=== PATIENT | female | born 1940 | race Caucasian/White ===

== ENCOUNTER 2017-10-25 09:42 | Inpatient (IN) | payer OTHER, MEDICARE ==
[2017-10-10 10:33] VITALS: BMI 33.0
--- NOTE | 2017-10-10 11:17 | PAT Medication Instructions ---
Service Date Oct 10, 2017. Current Home Medication List Alprazolam (Xanax), 1 MG PO HS PRN Aspirin (Aspirin Ec), 81 MG PO QAM Benzonatate (Tessalon Perles), 100 MG PO PRN Gabapentin (Neurontin), 600 MG PO QID Latanoprost (Xalatan 0.005% Oph Salome), 1 DROPS OP HS Levothyroxine Sodium (Levothyroxine Sodium), 100 MCG PO QAM Lorazepam (Ativan), 0.5 MG PO Q6H PRN for prn Losartan Potassium (Cozaar), 50 MG PO QAM Meloxicam (Mobic), 15 MG PO QAM Multivitamin (Multivitamin), 1 TAB PO QAM Sertraline (Zoloft), 150 MG PO QAM Simvastatin (Zocor), 20 MG PO QPM Medication Instructions For Your Scheduled Surgery - Hold the following medications per your surgeon's instructions: Meloxicam (Mobic), 15 MG PO QAM - Hold the following medications the morning of surgery: Benzonatate (Tessalon Perles), 100 MG PO PRN Losartan Potassium (Cozaar), 50 MG PO QAM Multivitamin (Multivitamin), 1 TAB PO QAM - Take the following medications the morning of surgery with a sip of water: Alprazolam (Xanax), 1 MG PO HS PRN (if needed) Aspirin (Aspirin Ec), 81 MG PO QAM Levothyroxine Sodium (Levothyroxine Sodium), 100 MCG PO QAM Gabapentin (Neurontin), 600 MG PO QID Lorazepam (Ativan), 0.5 MG PO Q6H PRN for prn (if needed) Sertraline (Zoloft), 150 MG PO QAM - Take the following medications as scheduled the night before surgery: Alprazolam (Xanax), 1 MG PO HS PRN (if needed) Gabapentin (Neurontin), 600 MG PO QID Latanoprost (Xalatan 0.005% Oph Salome), 1 DROPS OP HS Lorazepam (Ativan), 0.5 MG PO Q6H PRN for prn (if needed) Simvastatin (Zocor), 20 MG PO QPM If you have any questions please call us at [phone] or [phone] or [phone]
[2017-10-10 13:39] LABS: BASO % 0.5 %; BASO ABS # 0.05 K/uL (0-0.2); EOS % 2.5 %; EOS ABS # 0.23 K/uL (0-0.5); HEMATOCRIT 43.7 % (37-47); HEMOGLOBIN 14.7 g/dL (12.0-16.0); IG# 0.02 K/uL (0.00-0.02); LYMPH % 22.9 %; LYMPH ABS # 2.14 K/uL (1.2-3.4); MEAN CELL VOLUME 96.3 fL (80-100); MEAN CORPUSCULAR HEMOGLOBIN 32.4 pg (25-34); MEAN CORPUSCULAR HGB CONC 33.6 g/dl (32-36); MEAN PLATELET VOLUME 10.9 fL (7.4-10.4); MONO % 7.8 %; MONO ABS # 0.73 K/uL (0.11-0.59); NEUT % 66.1 %; NEUT ABS # 6.19 K/uL (1.4-6.5); PLATELET COUNT 202 K/uL (130-400); RED CELL DISTRIBUTION WIDTH SD 49.9 fL (36.4-46.3); WHITE BLOOD COUNT 9.36 K/uL (4.8-10.8)
[2017-10-10 13:49] LABS: BLOOD UREA NITROGEN 27 mg/dl (7-18); CALCIUM 9.1 mg/dl (8.5-10.1); CARBON DIOXIDE 27 mmol/L (21-32); CREATININE 1.14 mg/dl (0.60-1.20); GLUCOSE 87 mg/dl (70-99); POTASSIUM 4.3 mmol/L (3.5-5.1); SODIUM 140 mmol/L (136-145)
--- NOTE | 2017-10-20 14:55 | HISTORY & PHYSICAL EXAMINATION ---
DATE OF ADMISSION: 10/25/2017 CHIEF COMPLAINT: Knee pain and discomfort, left side greater than the right. HISTORY OF PRESENT ILLNESS: The patient is a 77-year-old female who presents for surgical treatment of her left knee. She has a long history of bilateral knee pain and discomfort treated by Dr. De La Torre in [place]. She has had both steroid shots and Euflexxa. The shots helped some, but became less successful over time. Left knee has bothered her more than the right. She has pain when she walks and the more she walks, the more it hurts. It is mostly medial pain. Of note, patient has a history of some hip and back problems followed by Dr. Granger as well. PAST MEDICAL HISTORY: 1. Hypertension. 2. Elevated cholesterol. 3. Sleep apnea with a CPAP machine. 4. Anxiety. 5. Hypothyroidism. 6. Arthritis. 7. Gastroesophageal reflux disease. 8. Hiatal hernia. 9. Obesity with a BMI of 33.3. 10. Colon cancer, status post resection in 1992 without recurrence. PAST SURGICAL HISTORY: Include: 1. Tonsillectomy. 2. Back surgery. 3. Shoulder surgery. 4. Tubal ligation. 5. Bowel resection. ALLERGIES: PROTONIX. CURRENT MEDICINES: 1. Lorazepam 0.5 mg p.r.n. for anxiety. 2. Levothyroxine. 3. Alprazolam 0.5 mg at bedtime. 4. Sertraline 50 mg in the morning. 5. Gabapentin 600 mg 4 times a day. 6. Losartan 50 mg a day. 7. Baby aspirin. 8. Latanoprost eyedrops 1 drop in each eye at bedtime. 9. Multivitamin. SOCIAL HISTORY: Significant for a 77-year-old female patient from [place]. She is . FAMILY HISTORY: Noncontributory. REVIEW OF SYSTEMS: Negative for diabetes. Denies any chest pain, no shortness of breath. No history of DVT or PE. PHYSICAL EXAMINATION: GENERAL: Reveals a pleasant middle-aged female, but looks in pretty good health. HEENT: Benign. NECK: Supple. No lymphadenopathy. LUNGS: Clear to auscultation. HEART: Has a regular rate and rhythm. ABDOMEN: Soft, nontender, nondistended. EXTREMITIES: Grossly neurovascularly intact except as follows. Examination of both knees shows the patient walks independently. She has a slight varus alignment of both knees. She has got tenderness medially in both knees as well as some bony hypertrophy. Range of motion is pretty symmetric with about 5 degrees short of full extension to 120 degrees of flexion. There is no instability. X-RAYS: X-rays of both knees were reviewed. It shows advanced bilateral knee DJD. She has got complete loss of the medial joint space. The left side is a bit worse than the right. ASSESSMENT: A 77-year-old female with advanced bilateral knee pain and degenerative joint disease, unresponsive to conservative treatment. The left side is more symptomatic than the right and she would like to have her left knee replaced. PLAN: We will take her to the operating room and do a left knee replacement. The risks and benefits of this procedure were explained to the patient including but not limited to DVT, PE, , infection, neurological injury, vascular injury, bleeding problem, pain, limited range of motion, stiffness, failure to relieve symptoms, incomplete relief of symptoms, need for further surgery in the future, fracture, leg length inequality, nerve palsy, etc. The patient understands and desires to proceed. Informed consent was obtained. We did talk to her about bringing her CPAP machine to the hospital. BEN
[2017-10-25] VITALS (7 sets, daily range): BP systolic 126–160; BP diastolic 75–91; PULSE 58–68; TEMP 36.5–36.9; O2SAT 90–98; Ht 160 cm; Wt 85.3 kg
[~2017-10-25] VITALS: Ht 160 cm; Wt 85.3 kg
[~2017-10-25 09:42] MED LIST: ACETAMINOPHEN 500 MG TAB PO SCH; ALPR-411 PO; ASPI81TA28 PO; BENZ100C84 PO; BUPIVACAINE 0.25% 30 ML VIAL ONE; BUPIVACAINE 0.5 % 5 MG/1 ML PF 10ML VIAL ONE; BUPIVACAINE LIPOSOME 266 MG, BUPIVACAINE/EPINEPHRINE INJ 50 ML, SODIUM CHLORIDE 0.9% PF... INFIL SCH; CEFAZOLIN 2000MG IV PUSH 15 ML IV SCH; FAMOTIDINE 20 MG TAB PO SCH; GABAPENTIN 300 MG CAP PO SCH; LACTATED RINGER'S 1000ML 1,000 ML IV SCH; LACTATED RINGER'S 1000ML IV SCH; LATA0.009 OP; LEVO100T7 PO; LORA-741 PO; LOSA50TA6 PO; MELO7.5T5 PO; METOCLOPRAMIDE HCL 10 MG TAB PO SCH; MULT-506 PO; NRN/600 PO; SERT50TA PO; SIMV20TA2 PO; TRANEXAMIC ACID INJ 1,000 MG x 1 Bag Preop IV SCH
--- NOTE | 2017-10-25 11:22 | History & Physical Bridge Note ---
H&P Re-Evaluation Bridge Note: I have examined the patient, reviewed the History & Physical and in the interval since the performance of the History & Physical I have noted the following changes of clinical significance: No changes noted
[2017-10-25] MEDS ORDERED: MIDAZOLAM HCL 1 MG/ML 2ML VIAL ONE ×4 (11:28→12:52)
[2017-10-25] MEDS ORDERED: HYDROmorphone INJ 1 MG/ML SYR IV PRN (12:00)
[2017-10-25] MEDS ORDERED: FENTANYL CITRATE INJ 50 MCG/1 ML 2 ML VIAL IV PRN (12:00)
[2017-10-25] MEDS ORDERED: ONDANSETRON INJ 2 MG/ML 2 ML VIAL IV PRN ×2 (12:00→15:00)
[2017-10-25] MEDS ORDERED: MEPERIDINE HCL 25 MG/ML CARP IV PRN (12:00)
[2017-10-25] MEDS ORDERED: EpHEDrine SULFATE INJ 50 MG/ML AMP IV PRN (12:00)
[2017-10-25] MEDS ORDERED: ATROPINE SULFATE 0.1 MG/ML 5ML SYR IV PRN (12:00)
[2017-10-25] MEDS ORDERED: LABETALOL HCL IV 5 MG/ML 20ML IV PRN (12:00)
[2017-10-25] MEDS ORDERED: SODIUM CHLORIDE 0.9% PF 50 ML VIAL ONE (12:38)
[2017-10-25] MEDS ORDERED: BACITRACIN 50000 UNIT VIAL ONE (12:38)
[2017-10-25] MEDS ORDERED: BUPIVACAINE LIPOSOME 1/3% 266 MG/20 ML VIAL INFIL ONE (12:38)
[2017-10-25] MEDS ORDERED: BUPIVACAINE 0.25% 30 ML VIAL ONE ×2 (12:39→12:41)
[2017-10-25] MEDS ORDERED: EpINEphrine INJ 1MG/ML AMP 1 MG/ML AMP ONE (12:40)
[2017-10-25] MEDS ORDERED: PROPOFOL IV EMULSION 10 MG/ML 20 ML VIAL IV ONE ×2 (13:42→14:13)
[2017-10-25] MEDS ORDERED: LIDOCAINE HCL 2% 2 ML VIAL (20MG/ML) ONE (13:42)
[2017-10-25] MEDS ORDERED: EpHEDrine SULFATE 50MG/5ML SYR ONE (14:37)
--- NOTE | 2017-10-25 14:49 | [facility] Post Operative Brief Note ---
Immediate Operative Summary Operative Date Oct 25, 2017. Pre-Operative Diagnosis Left knee degenerative joint disease. Post-Operative Diagnosis Left knee degenerative joint disease. Procedure(s) Performed Left total knee arthroplasty. Surgeon Dr. Plascencia Fitter/Welder Surgeon(s) Poornima Vieyra, PAC Estimated Blood Loss 50 ml Findings Consistent with Post-Op Diagnosis Fluids (cc crystalloids) 1200 cc Specimens A: Left knee bone and tissue. Drains None Anesthesia Type MAC Spinal Regional Complication(s) none Disposition Accompanied Pt To Recover: no Disposition: Recovery Room / PACU
[2017-10-25] MEDS ORDERED: HYDROmorphone INJ 0.5 MG/0.5 ML SYR IV PRN (15:00)
[2017-10-25] MEDS ORDERED: LORAZEPAM 0.5 MG TAB PO PRN (15:00)
[2017-10-25] MEDS ORDERED: BENZONATATE 100MG CAP PO PRN (15:00)
[2017-10-25] MEDS ORDERED: CEFAZOLIN IV 2,000 MG in DEXTROSE 5% 50ML 50 ML IV SCH (15:00)
[2017-10-25] MEDS ORDERED: MAGNESIUM HYDROXIDE SUSP 30 ML UDC PO PRN (15:00)
[2017-10-25] MEDS ORDERED: ALPRAZOLAM 0.5 MG TAB PO PRN (15:00)
[2017-10-25] MEDS ORDERED: ALUMINUM/MAGNESIUM/SIMETH (MAALOX MAX) 30 ML UDC PO PRN (15:00)
[2017-10-25] MEDS ORDERED: ZOLPIDEM TARTRATE 5 MG TAB PO PRN (15:00)
[2017-10-25] MEDS ORDERED: METOCLOPRAMIDE HCL INJ 5 MG/ML 2 ML VIAL IV PRN (15:00)
[2017-10-25] MEDS ORDERED: BISACODYL 10 MG SUPP PR PRN (15:00)
--- NOTE | 2017-10-25 15:32 | Anesthesiology Progress Note ---
Anesthesia Post Op Note Date & Time Oct 25, 2017 at 15:32 Vital Signs Pain Intensity: 0 Vital Signs Past 12 Hours Date Time Temp Pulse Resp B/P (MAP) Pulse Ox O2 Delivery O2 Flow Rate FiO2 10/25/17 15:31 37.1 10/25/17 15:29 63 13 10/25/17 15:29 63 13 97 10/25/17 15:26 156/78 10/25/17 15:24 67 19 98 10/25/17 15:24 66 19 10/25/17 15:21 141/72 10/25/17 15:19 68 18 10/25/17 15:19 67 18 96 10/25/17 15:18 148/74 10/25/17 15:16 67 18 10/25/17 15:16 67 18 97 10/25/17 15:11 66 19 10/25/17 15:11 66 19 96 10/25/17 15:10 67 14 96 10/25/17 15:10 68 14 10/25/17 15:06 135/69 10/25/17 15:05 66 16 10/25/17 15:05 66 16 95 10/25/17 15:01 137/71 10/25/17 15:00 72 17 10/25/17 15:00 71 17 98 10/25/17 14:56 131/68 10/25/17 14:55 37.5 77 18 131/68 97 Nasal Cannula 4 10/25/17 10:11 36.7 68 16 156/88 93 Room Air Notes Mental Status: alert / awake / arousable, participated in evaluation Pt Amnestic to Procedure: Yes Nausea / Vomiting: adequately controlled Pain: adequately controlled Airway Patency, RR, SpO2: stable & adequate BP & HR: stable & adequate Hydration State: stable & adequate Anesthetic Complications: no major complications apparent
--- NOTE | 2017-10-25 15:34 | DIAGNOSTIC IMAGING REPORT ---
L KNEE 1 OR 2 VIEWS ROUTINE CLINICAL HISTORY: 77 years-old Female presenting with AP/LATERAL IN PACU LEFT KNEE. TECHNIQUE: Frontal and lateral views of the left knee were obtained. COMPARISON: 02/18/2017. FINDINGS: Postsurgical changes of total left knee arthroplasty with patellar resurfacing. Expected intra-articular and soft tissue emphysema. Overlying skin jose noted. No malalignment. No periprosthetic fracture. No hardware complication. IMPRESSION: Expected postsurgical changes status post total left knee arthroplasty with patellar resurfacing. Electronically signed by: Riki Malhotra M.D. 10/25/2017 3:33 PM Dictated Date/Time: 10/25/2017 3:32 PM
[2017-10-25] MEDS: GABAPENTIN 600 MG TAB PO SCH ×2 (16:58→20:57)
[2017-10-25] MEDS ORDERED: ACET-24 PO (16:59)
[2017-10-25] MEDS ORDERED: RXC5 PO (16:59)
[2017-10-25] MEDS ORDERED: FRRG PO (16:59)
[2017-10-25] MEDS ORDERED: ASPEC81 PO (16:59)
--- NOTE | 2017-10-25 17:19 | Discharge Instructions ---
Discharge Instructions Date of Service Oct 25, 2017. Admission Reason for Admission: Left Knee Degenerative Joint Disease Discharge Discharge Diagnosis / Problem: Left Knee Replacement Discharge Goals Goal(s): Decrease discomfort, Improve function, Increase independence, Improve disease control, Therapeutic intervention Activity Recommendations Activity Limitations: per Instructions/Follow-up section Weightbearing Status: Left weightbearing . Instructions / Follow-Up Instructions / Follow-Up ACTIVITY RECOMMENDATIONS: Physical Therapy: * You will go to physical therapy three times each week for four to six weeks after your surgery in order to regain your knee range of motion and to retrain your knee to work properly. * It is just as important to make sure you are getting your knee perfectly straight as it is to regain your knee bend. * Taking a pain pill an hour before therapy can help you have a more productive and comfortable therapy session. Home Exercise: * You were shown a series of exercises (heel props, heel slides, etc.) in the hospital. Do these exercises three to four times each day including the exercises you were shown in physical therapy. Walking: * Get up and walk several times each day. For the first four weeks, try not to stand or walk for more than one hour at a time. If you do stand or walk for more than one hour, you will not hurt anything, but your knee and leg will likely swell. * As you feel comfortable, you may change from the walker or crutches to a cane and then to independent walking. MEDICATIONS: New Medicine: * You will likely be taking one or more of these medications: 1. Oxycodone - A quick and shorter-acting pain medication. Take one to two tablets every four to six hours to lessen your pain. 2. Iron Sulfate - Take two times each day for the month after surgery to help you replace the blood lost during surgery. 3. Aspirin - Thins your blood to lessen the chance of forming a blood clot. * The most common side effects of pain medicine and iron are nausea and constipation. If nausea or constipation is too much of a problem or if you have any questions about your new medicines or doses, call [facility] at [phone]. We will try to help you manage these issues. VERY IMPORTANT TO READ AND REVIEW" Pain: * The immediate post-operative period after knee replacement surgery is often quite painful. * You are given a prescription for pain medicine. You should take it, as directed, when you need it, especially before physical therapy and before going to bed. Pain that interferes with sleep is very common and can last several months. * You will likely need pain medicine for the first four to six weeks. It will not stop all of the pain. The pain will lessen and as you feel better, you may change to milder pain medicine such as Tylenol. * The most common side effects of pain medicine are nausea and constipation, so don't take more than you need. SPECIAL CARE INSTRUCTIONS: TEDs/Elastic Stockings: * The white elastic stockings help limit swelling and prevent blood clots from forming in your legs. The more you wear them, the more they work. * Wear them for six weeks after knee replacement surgery and four weeks after partial knee replacement. Prevention of Infection: * Take antibiotics one hour before any dental cleaning, dental work, urological procedure, gastrointestinal procedure or any invasive surgery in order to prevent your new joint from getting infected. * You may get the antibiotics from the doctor performing the procedure or you may call our office at before and we will call in a prescription to the pharmacy of your choice. Things to Watch For: * Drainage from the incision site that occurs more than one week after your surgery. * Severely increased knee/leg pain or swelling. * Increased redness at the incision site. * Fever above 102 degrees Fahrenheit. * Unusual chest pain or shortness of breath. * Unusual pain or burning with urination. Call [facility] at with any of the above problems or if you have any questions about your medicines or recovery. FOLLOW UP VISIT: Make an appointment to see your doctor for approximately two weeks after surgery for a progress check and staple removal by calling the office at . Current Hospital Diet Patient's current hospital diet: Regular Diet Discharge Diet Recommended Diet: Regular Diet Procedures Procedures Performed: Left total knee arthroplasty. Pending Studies Studies pending at discharge: no Medical Emergencies . Who to Call and When: Medical Emergencies: If at any time you feel your situation is an emergency, please call [phone] immediately. . Non-Emergent Contact Non-Emergency issues call your: Surgeon . "Provider Documentation" section prepared by Chintan Plascencia. .
--- NOTE | 2017-10-25 17:22 | PROGRESS NOTE ---
DATE: 10/25/2017 SUBJECTIVE: A 77-year-old white female postop from a left knee replacement. She is doing pretty well. She does not have any feeling or sensation back in her legs yet. Denies any chest pain or shortness of breath. Not feeling dizzy or lightheaded. OBJECTIVE: VITAL SIGNS: Temperature 36.8. Vital signs stable. GENERAL: Reveals a pleasant elderly female. She is sitting up in bed and talking to family. She looks comfortable. LUNGS: Clear to auscultation. HEART: Regular rate and rhythm. ABDOMEN: Soft, nontender, nondistended. EXTREMITIES: Grossly neurovascularly intact except as follows: Examination of her left lower extremity reveals the dressing to be clean, dry and intact. Leg is well aligned. She has got brisk refill. Good distal pulse. There is no significant sensory or motor function yet. X-RAYS: X-rays of the left knee from recovery room reviewed. Shows left cemented total knee arthroplasty. Components looked to be in good position. No signs of problems. ASSESSMENT: A 77-year-old female postop from a left knee replacement, doing well. The block is still in effect. PLAN: 1. DVT prophylaxis including thigh-high TEDs, SCDs, and aspirin twice a day. 2. PT/OT. Weightbear as tolerated. Left total knee protocol. 3. Pain control, doing well right now, but will have to adjust medicines as her pain increases. She says she does not respond to tramadol. We will give around the clock Tylenol and give her low dose Toradol and add the oxycodone as necessary. If she gets sicker has problems with oxycodone, next will be Dilaudid. 4. IV antibiotics x24 hours. 5. Disposition: She is hoping to be discharged to home with home health once medically stable. BEN
[2017-10-25] MEDS: FERROUS GLUCONATE 324 MG TAB PO SCH (17:55)
[2017-10-25] MEDS: KETOROLAC TROMETHAMINE 15 MG/ML VIAL IV. SCH ×2 (17:56→23:59)
[2017-10-25] MEDS: OXYCODONE HCL IR 5 MG TAB (IMMEDIATE RELEASE) PO PRN ×2 (19:44→23:59)
[2017-10-25] MEDS ORDERED: TRANEXAMIC ACID INJ 1,000 MG in SODIUM CHLORIDE 0.9% 100ML 100 ML IV SCH (20:00)
[2017-10-25] MEDS: SENNA 8.6 MG TAB PO SCH (20:57)
[2017-10-25] MEDS: LATANOPROST 0.005% OP SOLN 2.5 ML BTL OP SCH (20:57)
[2017-10-25] MEDS: TAPENTADOL ER 50 MG TABCR PO SCH (20:57)
[2017-10-25] MEDS: DOCUSATE SODIUM 100 MG CAP PO SCH (20:57)
[2017-10-25] MEDS: ASPIRIN 81 MG ECTAB PO SCH (20:57)
[2017-10-25] MEDS: SIMVASTATIN 20 MG TAB PO SCH (20:57)
[2017-10-25] MEDS: D5W AND 1/2NSS + 20MEQ KCL 1,000 ML IV SCH (21:01)
[2017-10-25] MEDS: ACETAMINOPHEN 500 MG TAB PO SCH (22:10)
[2017-10-25] MEDS: CEFAZOLIN IV 2,000 MG in SYRINGE 0 ML IV SCH (22:10)
[2017-10-26 00:15] VITALS: BP 127/78
--- NOTE | 2017-10-26 02:05 | OPERATIVE REPORT ---
DATE OF OPERATION: 10/25/2017 SURGEON: Chintan Plascencia MD CASH MANAGEMENT ASSOCIATE: XAVIER Muhammad PREOPERATIVE DIAGNOSIS: Left knee degenerative joint disease. POSTOPERATIVE DIAGNOSIS: Same. PROCEDURE PERFORMED: Left cemented posterior stabilized total knee arthroplasty. COMPLICATIONS: None. ESTIMATED BLOOD LOSS: 50 mL FLUID REPLACEMENT: 1200 mL crystalloid fluid replacement. ANESTHESIA: Spinal with adductor canal block. DRAINS: None. SPECIMENS: Left knee sent for pathology. TOURNIQUET TIME: 53 minutes at 300 mmHg. OPERATIVE INDICATIONS: The patient is a 77-year-old female who has had a long history of bilateral knee pain and discomfort, left side greater than right. She has been through extensive conservative treatment, which became less successful over time. She continued to be debilitated by her knee pain. She elected to proceed with total knee arthroplasty. OPERATIVE FINDINGS: Operative findings revealed advanced left knee DJD. She has pretty extensive grade 4 changes primarily in the medial compartment. There was not much in the way of eburnation. A moderate-sized joint effusion. She did have a fairly stiff knee with about a 10-degree flexion contracture despite it did not reveal severe arthritis. Just a small osteophyte in all 3 compartments primarily medially. A moderate-sized joint effusion. OPERATIVE IMPLANTS: Operative implants consisted of: 1. Biomet Vanguard size 62.5 left right posterior stabilized femoral component. 2. Biomet size 67 tibial tray. 3. A 10-mm posterior stabilized polyethylene insert. 4. A 28 x 8 all poly patella. OPERATIVE PROCEDURE: The patient was taken to the operating room, identified and placed on the operating table in supine position. All contact areas were appropriately padded. IV antibiotics provided by anesthesia team. A spinal anesthetic and adductor canal block had been provided in the holding area. Santos catheter was placed in sterile fashion. A left thigh tourniquet was then placed. The left lower extremity was then prepped and draped in usual sterile fashion. The left leg was elevated and exsanguinated with Esmarch and tourniquet was placed at 300 mmHg. An anterior approach of the left knee was then performed through a longitudinal incision centered over the patella. Sharp dissection was carried out through the subcutaneous tissues down to the level of the extensor mechanism. A medial parapatellar arthrotomy incision was made. Some subperiosteal dissection was carried out medially. The fat pad resected from beneath the patellar tendon. The lateral patellofemoral ligament was released. Patella was everted, and the knee was flexed. The osteophytes were taken off the distal femur. The ACL and PCL were then released from the distal femur and the tibia subluxated anteriorly. The external tibial alignment jig was then placed in the anterior face of the tibia and adjusted 14 mm medially. Proximal tibial cut was made to remove about a millimeter or 2 of bone from the most deficient aspect of the medial tibial plateau. Tibia was then sized to a size 67. Some osteophytes were taken off medial and posteromedially. Attention was then drawn to the femur. The distal femur was entered with a sharp drill bit. Intramedullary canal was suctioned. A left 5-degree valgus cutting guide was placed. Distal femoral cutting block was pinned in place. Distal femoral cut was made to take an additional 3 mm of bone off the distal femur. The femur was then sized to a size 62.5. This was downsized slightly. The AP cutting block pinned parallel to the epicondylar axis, which was 4 degrees of external rotation. The anterior cut, anterior chamfer cut, posterior cut, and posterior chamfer cuts were made. Box cutting guide was placed and adjusted slight lateral and the box cut was made. The knee was flexed. The remnants of medial and lateral menisci were excised. The osteophytes were taken off the posterior aspect of the femur. Trial femoral component was placed. Tibial tray was pinned in maximum external rotation and the drill and stem punch were used to create defect in proximal tibia for the tibial tray. The knee was then trialed and a 10-mm insert fit most appropriately. Attention was then drawn to the patella. The patella was cleaned of all soft tissues. Patella thickness measured 19 mm in thickness and was cut down to 12. It was sized to a size 28 patella. Lug holes were drilled for a 28 patella. Lateral osteophyte was removed. Patella button was placed. Knee was taken through range of motion and patella tracked nicely with no thumbs test. Attention was then drawn toward placement of permanent components. All trial components were removed. A bone plug was placed in the distal femur to limit blood loss. A double batch of Palacos G cement was mixed. A Biomet Vanguard size 62.5 left posterior stabilized femoral component, size 67 tibial tray, a 10-mm posterior stabilized polyethylene insert, a 28 x 8 all poly patella then cemented in place. Knee was brought out into full extension until cement hardened. A final cement check was then performed. The pericapsular tissues were injected with a total of 100 mL of a combination of 20 mL of Exparel, 30 mL of normal saline, 50 mL of 0.25% Marcaine with epinephrine. The patient did receive 1 gram of tranexamic acid. The tourniquet was then let down for a final tourniquet time of 53 minutes. Hemostasis was assured with use of electrocautery. The wound was once again irrigated. The extensor mechanism was then closed with a combination of #1 PDS suture and #1 Vicryl suture in a [id number] fashion. Extensor mechanism was checked and found to be intact. The subcutaneous tissues were then closed with 2-0 Dexon suture in a buried interrupted fashion. Skin was closed with skin jose. Leg was then cleaned and dried and a sterile dressing of Xeroform, 4 x 4's, sterile cast padding and Raoul bandage were applied. The patient was then transferred to the recovery room in stable condition. The patient tolerated the procedure with no complications. All needle and sponge counts were correct at the end of the operation. I attest to the content of the Intraoperative Record and any orders documented therein. Any exception s are noted below.
[2017-10-26 04:24] VITALS: BP 101/62; PULSE 62; TEMP 36.8; O2SAT 90
[2017-10-26] MEDS: LEVOTHYROXINE 100 MCG TAB PO SCH (05:51)
[2017-10-26] MEDS: ACETAMINOPHEN 500 MG TAB PO SCH ×3 (05:52→21:02)
[2017-10-26] MEDS: KETOROLAC TROMETHAMINE 15 MG/ML VIAL IV. SCH ×4 (05:52→23:39)
[2017-10-26] MEDS: CEFAZOLIN IV 2,000 MG in SYRINGE 0 ML IV SCH (05:52)
[2017-10-26 06:06] LABS: HEMATOCRIT 37.2 % (37-47); HEMOGLOBIN 12.2 g/dL (12.0-16.0); MEAN CELL VOLUME 97.1 fL (80-100); MEAN CORPUSCULAR HEMOGLOBIN 31.9 pg (25-34); MEAN CORPUSCULAR HGB CONC 32.8 g/dl (32-36); MEAN PLATELET VOLUME 10.4 fL (7.4-10.4); PLATELET COUNT 176 K/uL (130-400); RED CELL DISTRIBUTION WIDTH CV 13.8 % (11.5-14.5); RED CELL DISTRIBUTION WIDTH SD 48.9 fL (36.4-46.3); WHITE BLOOD COUNT 9.21 K/uL (4.8-10.8)
[2017-10-26 06:47] LABS: CALCIUM 8.5 mg/dl (8.5-10.1); CREATININE 1.08 mg/dl (0.60-1.20); POTASSIUM 4.5 mmol/L (3.5-5.1)
[2017-10-26 07:14] VITALS: BP 120/77; PULSE 65; TEMP 37; O2SAT 90
[2017-10-26] MEDS: D5W AND 1/2NSS + 20MEQ KCL 1,000 ML IV SCH ×2 (08:24→12:30)
[2017-10-26] MEDS ORDERED: MULTIVITAMIN TAB PO SCH (09:00)
--- NOTE | 2017-10-26 09:08 | PROGRESS NOTE ---
DATE: 10/26/2017 CHIEF COMPLAINT: Status post left total knee arthroplasty postop day #1. PROGRESS: Josefa was seen and examined at bedside today. Overall, she is doing very well. She has a little bit of soreness in the knee, was not too bad. She was up and ambulating into the hallway with a walker last night. She has no complaints. PHYSICAL EXAMINATION: LEFT KNEE: The dressing is clean and dry. She is lying with her knee in extension, elevated with a pillow. She has active dorsiflexion and plantarflexion of her left ankle and sensation is intact. VITAL SIGNS: All stable on room air. GENERAL: She has a Santos catheter in place which is set to be removed later this morning. LABORATORY DATA: She has an H&H today of 12.2 and 37.2. Her glucose is 140. IMPRESSION: Status post left total knee arthroplasty postop day #1. PLAN: At this point, she is doing as well as expected. She will be up and ambulating today with physical therapy. Her pain is well controlled. She is on aspirin for DVT prophylaxis. We will plan discharge to home with health services tomorrow.
[2017-10-26] MEDS: LOSARTAN POTASSIUM 50 MG TAB PO SCH (09:10)
[2017-10-26] MEDS: ASPIRIN 81 MG ECTAB PO SCH ×2 (09:11→20:53)
[2017-10-26] MEDS: PANTOprazole SOD 40 MG TAB PO SCH (09:11)
[2017-10-26] MEDS: SERTRALINE HCL 50 MG TAB PO SCH (09:11)
[2017-10-26] MEDS: DOCUSATE SODIUM 100 MG CAP PO SCH ×2 (09:11→20:53)
[2017-10-26] MEDS: MULTIVITAMIN TAB PO SCH (09:11)
[2017-10-26] MEDS: GABAPENTIN 600 MG TAB PO SCH ×4 (09:12→20:54)
[2017-10-26] MEDS: FERROUS GLUCONATE 324 MG TAB PO SCH ×3 (09:13→17:35)
[2017-10-26] MEDS: OXYCODONE HCL IR 5 MG TAB (IMMEDIATE RELEASE) PO PRN ×3 (09:15→17:35)
[2017-10-26] MEDS: TAPENTADOL ER 50 MG TABCR PO SCH ×2 (09:15→20:54)
[2017-10-26 11:23] VITALS: BP 147/82; PULSE 64; TEMP 36.8; O2SAT 91
[2017-10-26] MEDS ORDERED: NURSING VERBAL MED ORDER ONE (12:00)
[2017-10-26 15:01] VITALS: BP 108/63; PULSE 68; TEMP 37; O2SAT 92
[2017-10-26] MEDS: LATANOPROST 0.005% OP SOLN 2.5 ML BTL OP SCH (20:53)
[2017-10-26] MEDS: SIMVASTATIN 20 MG TAB PO SCH (20:57)
[2017-10-26] MEDS: SENNA 8.6 MG TAB PO SCH (20:58)
[2017-10-26 23:35] VITALS: BP 110/69; PULSE 67; TEMP 36.7; O2SAT 83; O2SAT 96
[2017-10-27 03:30] VITALS: O2SAT 96
[2017-10-27] MEDS: LEVOTHYROXINE 100 MCG TAB PO SCH (06:07)
[2017-10-27] MEDS: ACETAMINOPHEN 500 MG TAB PO SCH (06:08)
[2017-10-27] MEDS: KETOROLAC TROMETHAMINE 15 MG/ML VIAL IV. SCH ×3 (06:09→13:03)
[2017-10-27 07:10] VITALS: O2SAT 94
[2017-10-27 07:15] VITALS: BP 103/61; PULSE 56; TEMP 36.8; O2SAT 96
[2017-10-27] MEDS: FERROUS GLUCONATE 324 MG TAB PO SCH (08:42)
[2017-10-27] MEDS: MULTIVITAMIN TAB PO SCH (08:43)
[2017-10-27] MEDS: LOSARTAN POTASSIUM 50 MG TAB PO SCH (08:43)
[2017-10-27] MEDS: SERTRALINE HCL 50 MG TAB PO SCH (08:44)
[2017-10-27] MEDS: PANTOprazole SOD 40 MG TAB PO SCH (08:44)
[2017-10-27] MEDS: TAPENTADOL ER 50 MG TABCR PO SCH (08:46)
[2017-10-27 10:25] VITALS: O2SAT 94
[2017-10-27] MEDS: OXYCODONE HCL IR 5 MG TAB (IMMEDIATE RELEASE) PO PRN ×2 (10:30→13:52)
[2017-10-27] MEDS: ASPIRIN 81 MG ECTAB PO SCH (10:30)
[2017-10-27] MEDS: DOCUSATE SODIUM 100 MG CAP PO SCH (10:30)
[2017-10-27] MEDS: GABAPENTIN 600 MG TAB PO SCH (10:31)
--- NOTE | 2017-10-27 10:40 | PROGRESS NOTE ---
DATE: 10/27/2017 CHIEF COMPLAINT: Status post left total knee arthroplasty postop day #2. PROGRESS: Josefa was seen and examined at bedside today. She is having a lot more pain in her knee than she was yesterday. She was able to up and ambulate better yesterday with physical therapy. She is still on nasal cannula. She otherwise has no complaints. PHYSICAL EXAMINATION: LEFT KNEE: The dressing was changed and the incision is clean and dry. Her leg is out in full extension. She is neurovascularly intact. She has active dorsiflexion and plantarflexion of her left ankle. VITAL SIGNS: Stable on 3-4 liters of nasal cannula. They did take her off nasal cannula yesterday and she dropped to 83. After weaning her down this morning, she is down to 1 liter nasal cannula and her sats 96%. Will continue to wean her off. IMPRESSION: Status post left total knee arthroplasty postop day #2. PLAN: We will keep trying to wean her off the nasal cannula. Overall, she seems to be doing well from a medical standpoint. Remainder of her vital signs are stable and her blood work looks okay. She is now satting 96% on 1 liter. Will wean her off the nasal cannula today as long as her saturation stayed above 92%. We will discharge her to home later today with [facility] health. She is on aspirin for DVT prophylaxis.
[2017-10-27 11:47] VITALS: O2SAT 96
[2017-10-27 12:03] VITALS: BP 103/61; PULSE 56; TEMP 36.8; O2SAT 96
== END 2017-10-27 14:14 | disposition home health service (06) | DRG 470 ==
LOC: C.ACU 09:42 → C.3E 14:56 → ENRESERV 15:18
PROVIDERS: ADMIT Orthopaedic Surgery Sports Medicine; ATTEND Orthopaedic Surgery Sports Medicine
PROC: 0SRD0J9 Replacement of Left Knee Joint with Synthetic Substitute, Cemented, Open Approach (ICD-10-PCS; principal; 2017-10-25 13:00)
DX: M17.0 Bilateral primary osteoarthritis of knee (principal); I10 Essential (primary) hypertension; G47.30 Sleep apnea, unspecified; E03.9 Hypothyroidism, unspecified; F41.9 Anxiety disorder, unspecified; E66.9 Obesity, unspecified; Z79.899 Other long term (current) drug therapy; Z79.82 Long term (current) use of aspirin; Z85.038 Personal history of other malignant neoplasm of large intestine; Z68.33 Body mass index [BMI] 33.0-33.9, adult; Z88.8 Allergy status to other drugs, medicaments and biological substances

== ENCOUNTER 2018-01-12 18:43 | Emergency (ER) | payer OTHER, MEDICARE ==
[~2018-01-12] VITALS: Ht 157.5 cm; Wt 80.9 kg
[~2018-01-12 18:43] MED LIST changes: +ACET-24 PO; -ACETAMINOPHEN 500 MG TAB PO SCH; +ASPI-320 PO; -ASPI81TA28 PO; -BUPIVACAINE 0.25% 30 ML VIAL ONE; -BUPIVACAINE 0.5 % 5 MG/1 ML PF 10ML VIAL ONE; -BUPIVACAINE LIPOSOME 266 MG, BUPIVACAINE/EPINEPHRINE INJ 50 ML, SODIUM CHLORIDE 0.9% PF... INFIL SCH; -CEFAZOLIN 2000MG IV PUSH 15 ML IV SCH; -FAMOTIDINE 20 MG TAB PO SCH; +FRRG PO; -GABAPENTIN 300 MG CAP PO SCH; -LACTATED RINGER'S 1000ML 1,000 ML IV SCH; -LACTATED RINGER'S 1000ML IV SCH; -LATA0.009 OP; +LATA0.009 OPB; -MELO7.5T5 PO; -METOCLOPRAMIDE HCL 10 MG TAB PO SCH; +RXC5 PO; -TRANEXAMIC ACID INJ 1,000 MG x 1 Bag Preop IV SCH
[2018-01-12 18:48] VITALS: TEMP 36.8; Ht 157.5 cm; Wt 80.9 kg
[2018-01-12] MEDS ORDERED: SODIUM CHLORIDE 0.9% 1000ML 500 ML IV STA (18:59)
[2018-01-12] MEDS ORDERED: ONDANSETRON INJ 2 MG/ML 2 ML VIAL IV STA (18:59)
[2018-01-12] MEDS ORDERED: VANCOMYCIN HCL 125 MG/2.5ML SOLN PO STA (19:09)
--- NOTE | 2018-01-12 19:20 | EMERGENCY ROOM VISIT NOTE ---
History Report prepared by Estevan: Emily Khan Under the Supervision of: Dr. Bradford Be M.D. First contact with patient: 18:51 Chief Complaint: NAUSEA Stated Complaint: NAUSEA History of Present Illness The patient is a 77 year old female who presents to the Emergency Room with complaints of constant nausea starting about a week ago. The patient states that she was diagnosed with C-Diff a week ago. She states that she had had it for a month and didn't know. She notes that they believe it came from antibiotics she was on that were prescribed by Dr. Granger for her back. She reports that they started her on Metronidazole for the C-Diff and she has been nauseous since. She reports that she has not been able to eat due to the nausea and loss of appetite. She reports that she gets extremely shaky when she tries to eat. She states that she has not been able to take the Metronidazole at noon or this evening. The patient complains of intermittent abdominal burning, headache, cough, and back pain. She notes that she has a history of back surgery and the pain is worse on the right side compared to the left. She notes that it radiates into her ribs. The patient notes that she still has diarrhea, but not as much as it used to be. The patient notes that her thyroid has been out of whack and her PCP has been following it. She notes that her PCP thought that she may have mixed up her medication for a while--she corrected the error a week ago. The patient denies vomiting, excessive thirst, having any medications for nausea, urinary symptoms, fever, chest pain, and shortness of breath. Source of History: patient Onset: a week ago Position: other (global) Quality: other (nausea) Timing: constant Associated Symptoms: + headache, + cough, + abdominal pain (burning), + back pain, + diarrhea, No fevers, No chest pain, No SOB, No vomiting, No urinary symptoms Note: The patient complains of loss of appetite and shakiness. The patient denies excessive thirst. Review of Systems See HPI for pertinent positives & negatives. A total of 10 systems reviewed and were otherwise negative. Past Medical & Surgical Medical Problems: (1) Anxiety (2) Benign hypertension (3) C. difficile colitis (4) Gastroesophageal reflux disease (5) Hyperlipidemia (6) Hypothyroidism (7) Left Knee DJD (8) Lymphedema Surgical Problems: (1) History of back surgery (2) Total knee replacement status Family History No pertinent family history Social History Smoking Status: Never Smoker Alcohol Use: none Marital Status: Housing Status: lives with significant other Occupation Status: employed Current/Historical Medications Scheduled Aspirin (Aspirin Ec), 81 MG PO DAILY Latanoprost (Xalatan 0.005% Oph Salome), 1 DROP OPB HS Levothyroxine Sodium (Levothyroxine Sodium), 100 MCG PO QAM Losartan Potassium (Cozaar), 25 MG PO QAM Metronidazole (Flagyl), 500 MG PO TID Multivitamin (Multivitamin), 1 TAB PO QAM Ondasetron Odt (Zofran Odt), 4 MG SL Q6H Sertraline (Zoloft), 50 MG PO QAM Sertraline (Zoloft), 100 MG PO QAM Simvastatin (Zocor), 40 MG PO QPM Vancomycin Hcl (Vancomycin), 1 CAP PO QID Scheduled PRN Alprazolam (Xanax), 0.5 MG PO BID PRN for Anxiety Benzonatate (Tessalon Perles), 100 MG PO TID PRN for Cough Fluticasone Propionate (Nasal) (Flonase Allergy Relief), 2 SPRAYS AMILCAR DAILY PRN for Allergy Symptoms Allergies Coded Allergies: Morphine (Verified Allergy, Severe, anaphalytic, 10/10/17) PT HAD PAIN PUMP FOR POST OP MANAGAMENT-DEVICE GAVE TOO MUCH MED PER PT-SHE CODED Quinolones (Verified Allergy, Mild, UNKNOWN, 10/10/17) Sulfa Drugs (Verified Allergy, Mild, UNKNOWN, 10/10/17) Sulfamethoxazole (Verified Allergy, Mild, UNKNOWN, 10/10/17) Trimethoprim (Verified Allergy, Mild, UNKNOWN, 10/10/17) Adhesives (Verified Allergy, Unknown, REDNESS SKIN IRRITATION WITH SOME TAPES, 10/10/17) Ciprofloxacin (Verified Allergy, Unknown, RASH, 10/10/17) Moxifloxacin (Verified Allergy, Unknown, rash, 10/10/17) Pantoprazole (Verified Allergy, Unknown, rash, 10/10/17) Cortisone (Verified Adverse Reaction, Mild, UNKNOWN, 10/25/17) pt states this is not accurate and receives cortisone injections Nitrofurantoin (Verified Adverse Reaction, Mild, got very nauseated and diarrhea, 10/10/17) Physical Exam Vital Signs Date Time Temp Pulse Resp B/P (MAP) Pulse Ox O2 Delivery O2 Flow Rate FiO2 01/12/18 21:04 88 20 134/78 98 Room Air 01/12/18 18:48 36.8 67 18 162/91 98 Physical Exam GENERAL: Patient is in no acute distress. HEENT: No acute trauma, normocephalic atraumatic, mucous membranes moist, no nasal congestion, no scleral icterus. NECK: No stridor, no adenopathy, no meningismus, trachea is midline. LUNGS: Clear to auscultation bilaterally, no wheeze, no rhonchi, breath sounds equal. HEART: Without murmurs gallops or rubs, regular rate and rhythm. ABDOMEN: Soft, nontender, bowel sounds positive, no hernias, no peritonitis. EXTREMITIES: No cyanosis or edema, full range of motion of all the joints without pain or difficulty, no signs for acute trauma. NEUROLOGIC: Oriented x 3, no acute motor or sensory deficits, no focal weakness. SKIN: No rash, no jaundice, no diaphoresis. Medical Decision & Procedures ER Provider Diagnostic Interpretation: Radiology results as stated below per my review and radiologist interpretation: CHEST ONE VIEW PORTABLE HISTORY: cough COMPARISON: Chest 06/19/2017. FINDINGS: The heart remains mildly enlarged. Stable linear densities within the left lung base suggesting scarring or atelectasis. No new focal lung consolidations. No pleural effusions. No pneumothorax. Prior cholecystectomy. IMPRESSION: No significant change compared to the prior study. No acute process. Electronically signed by: Jorge Alberto Dee M.D. 01/12/2018 8:13 PM Dictated Date/Time: 01/12/2018 8:12 PM Laboratory Results 01/12/18 19:20 Red Blood Count 4.49, Mean Corpuscular Volume 92.4, Mean Corpuscular Hemoglobin 31.4, Mean Corpuscular Hemoglobin Concent 34.0, Mean Platelet Volume 9.9, Neutrophils (%) (Auto) 59.6, Lymphocytes (%) (Auto) 29.0, Monocytes (%) (Auto) 7.0, Eosinophils (%) (Auto) 3.7, Basophils (%) (Auto) 0.6, Neutrophils # (Auto) 4.62, Lymphocytes # (Auto) 2.25, Monocytes # (Auto) 0.54, Eosinophils # (Auto) 0.29, Basophils # (Auto) 0.05 01/12/18 19:20 Test 01/12/18 19:20 01/12/18 19:25 White Blood Count 7.76 K/uL (4.8-10.8) Red Blood Count 4.49 M/uL (4.2-5.4) Hemoglobin 14.1 g/dL (12.0-16.0) Hematocrit 41.5 % (37-47) Mean Corpuscular Volume 92.4 fL (80-100) Mean Corpuscular Hemoglobin 31.4 pg (25-34) Mean Corpuscular Hemoglobin Concent 34.0 g/dl (32-36) Platelet Count 226 K/uL (130-400) Mean Platelet Volume 9.9 fL (7.4-10.4) Neutrophils (%) (Auto) 59.6 % Lymphocytes (%) (Auto) 29.0 % Monocytes (%) (Auto) 7.0 % Eosinophils (%) (Auto) 3.7 % Basophils (%) (Auto) 0.6 % Neutrophils # (Auto) 4.62 K/uL (1.4-6.5) Lymphocytes # (Auto) 2.25 K/uL (1.2-3.4) Monocytes # (Auto) 0.54 K/uL (0.11-0.59) Eosinophils # (Auto) 0.29 K/uL (0-0.5) Basophils # (Auto) 0.05 K/uL (0-0.2) RDW Standard Deviation 50.0 fL (36.4-46.3) RDW Coefficient of Variation 14.7 % (11.5-14.5) Immature Granulocyte % (Auto) 0.1 % Immature Granulocyte # (Auto) 0.01 K/uL (0.00-0.02) Anion Gap 9.0 mmol/L (3-11) Est Creatinine Clear Calc Drug Dose 46.5 ml/min Estimated GFR () 61.6 Estimated GFR (Non- 53.1 BUN/Creatinine Ratio 14.7 (10-20) Calcium Level 8.9 mg/dl (8.5-10.1) Magnesium Level 2.1 mg/dl (1.8-2.4) Total Bilirubin 0.4 mg/dl (0.2-1) Aspartate Amino Transf (AST/SGOT) 35 U/L (15-37) Alanine Aminotransferase (ALT/SGPT) 35 U/L (12-78) Alkaline Phosphatase 80 U/L (45-117) Troponin I < 0.015 ng/ml (0-0.045) Total Protein 7.9 gm/dl (6.4-8.2) Albumin 4.0 gm/dl (3.4-5.0) Globulin 3.9 gm/dl (2.5-4.0) Albumin/Globulin Ratio 1.0 (0.9-2) Thyroid Stimulating Hormone (TSH) 17.600 uIu/ml (0.300-4.500) Free Thyroxine 0.93 ng/dl (0.80-1.60) Free Triiodothyronine 2.60 pg/ml (2.30-4.20) Urine Color DK YELLOW Urine Appearance CLEAR (CLEAR) Urine pH 5.5 (4.5-7.5) Urine Specific [place] 1.031 (1.000-1.030) Urine Protein NEG (NEG) Urine Glucose (UA) NEG (NEG) Urine Ketones TRACE (NEG) Urine Occult Blood NEG (NEG) Urine Nitrite NEG (NEG) Urine Bilirubin NEG (NEG) Urine Urobilinogen NEG (NEG) Urine Leukocyte Esterase SMALL (NEG) Urine WBC (Auto) 5-10 /hpf (0-5) Urine RBC (Auto) 0-4 /hpf (0-4) Urine Hyaline Casts (Auto) 1-5 /lpf (0-5) Urine Epithelial Cells (Auto) >30 /lpf (0-5) Urine Bacteria (Auto) NEG (NEG) Urine Crystals CALCIUM OXALATE (NONE Laboratory results reviewed by me. Medications Administered Medications (Trade) Dose Ordered Sig/Brannon Route Start Time Stop Time Status Last Admin Dose Admin Sodium Chloride 500 ml @ 999 mls/hr Q31M STAT IV 01/12/18 18:59 01/12/18 19:29 DC 01/12/18 19:22 999 MLS/HR Ondansetron HCl (Zofran Inj) 4 mg NOW STAT IV 01/12/18 18:59 01/12/18 19:03 DC 01/12/18 19:22 4 MG Vancomycin HCl (Vancomycin Oral Soln) 125 mg NOW STAT PO 01/12/18 19:09 01/12/18 19:10 DC 01/12/18 19:45 125 MG Raspberry (Raspberry Syrup 5ml Cup) 5 ml 0 PO 01/12/18 19:30 01/12/18 19:31 DC 01/12/18 19:44 5 ML Ondansetron HCl (ZOFRAN ODT 4MG Home Pack) 1 homepack UD ONCE PO 01/12/18 20:45 01/12/18 20:46 DC 01/12/18 20:45 1 HOMEPACK ECG Per My Interpretation Indication: nausea Rate (beats per minute): 64 Rhythm: normal sinus Findings: no ectopy, other (LVH, no ST elevation, no PVCs) ED Course 1851: The patient was evaluated in room B5. A complete history and physical exam was performed. 1858: Ordered Zofran Inj 4 mg IV, NSS 500 ml @ 999 mls/hr IV. 1908: Ordered Vancomycin HCl 125 mg PO. 1929: Ordered Raspberry 5 ml PO. 2024: Reevaluated the patient. Discussed results and discharge instructions: She verbalized understanding and agreement. The patient is ready for discharge. Medical Decision Differential diagnoses include medication reaction, electrolyte imbalance, dehydration, UTI, C-Difficile colitis, hyper or hypothyroidism, pneumonia, sinusitis. There is no leukocytosis or concerning anemia. No significant electrolyte abnormality, kidney failure or hepatitis. TSH is elevated however, the T3 and T4 levels are normal--the patient does take thyroid medication. Urinalysis shows contamination, no obvious infection. Chest film did not show pneumonia or CHF. EKG showed a normal sinus rhythm with LVH, no acute ischemia. Cardiac enzyme testing 1 was not consistent with acute cardiac injury. On exam, the patient was not toxic or febrile. There was no peritonitis. Patient received IV saline, IV Zofran and oral vancomycin. She is doing well, she feels improved. The patient presents with symptoms consistent with nausea and just a general unwell feeling likely from her Flagyl dosing. I will stop this medication and switch her to oral vancomycin. The patient will return here for any worsening symptoms. She was given some Zofran to use for persistent nausea. Medication Reconcilliation Current Medication List: was personally reviewed by me Blood Pressure Screening Patient's blood pressure: Elevated blood pressure Blood pressure disposition: Referred to PCP Impression Primary Impression: Nausea Additional Impressions: Dehydration Medication reaction C. difficile colitis Scribe Attestation The scribe's documentation has been prepared under my direction and personally reviewed by me in its entirety. I confirm that the note above accurately reflects all work, treatment, procedures, and medical decision making performed by me. Departure Information Dispostion Home / Self-Care Prescriptions Ondasetron Odt (ZOFRAN ODT) 4 Mg Tab 4 MG SL Q6H for Nausea, #12 TAB Prov: Bradford Be M.D. 01/12/18 Vancomycin Hcl (Vancomycin) 125 Mg Cap 1 CAP PO QID for 10 Days, #40 CAP Prov: Bradford Be M.D. 01/12/18 Referrals Italia Rodriguez D.O. (PCP) Forms HOME CARE DOCUMENTATION FORM, IMPORTANT VISIT INFORMATION Patient Instructions My [facility] Additional Instructions stop the metronidazole start vancomycin 4x per day for 10 days use the zofran 1 tab as need every 6 hours for nausea fluids rest tylenol for pain return if worsening see your doctor this week for a recheck Problem Qualifiers
[2018-01-12] MEDS ORDERED: RASPBERRY SYRUP 5 ML UDP PO SCH (19:30)
[2018-01-12 19:33] LABS: BASO % 0.6 %; BASO ABS # 0.05 K/uL (0-0.2); EOS % 3.7 %; EOS ABS # 0.29 K/uL (0-0.5); HEMATOCRIT 41.5 % (37-47); HEMOGLOBIN 14.1 g/dL (12.0-16.0); IG# 0.01 K/uL (0.00-0.02); LYMPH ABS # 2.25 K/uL (1.2-3.4); MEAN CELL VOLUME 92.4 fL (80-100); MEAN CORPUSCULAR HEMOGLOBIN 31.4 pg (25-34); MEAN PLATELET VOLUME 9.9 fL (7.4-10.4); MONO ABS # 0.54 K/uL (0.11-0.59); NEUT % 59.6 %; NEUT ABS # 4.62 K/uL (1.4-6.5); PLATELET COUNT 226 K/uL (130-400); RED CELL DISTRIBUTION WIDTH CV 14.7 % (11.5-14.5); WHITE BLOOD COUNT 7.76 K/uL (4.8-10.8)
[2018-01-12] MEDS ORDERED: LOSA1TAB PO (19:41)
[2018-01-12] MEDS ORDERED: SERT-234 PO (19:41)
[2018-01-12] MEDS ORDERED: FLUT0.15 NAE (19:41)
[2018-01-12] MEDS ORDERED: METR-163 PO (19:41)
[2018-01-12] MEDS ORDERED: SIMV40TA4 PO (19:41)
[2018-01-12] MEDS ORDERED: ASPI81TA28 PO (19:42)
[2018-01-12 20:12] LABS: ALKALINE PHOSPHATASE 80 U/L (45-117); ALT/SGPT 35 U/L (12-78); AST/SGOT 35 U/L (15-37); BLOOD UREA NITROGEN 15 mg/dl (7-18); CALCIUM 8.9 mg/dl (8.5-10.1); CARBON DIOXIDE 25 mmol/L (21-32); CREATININE 1.03 mg/dl (0.60-1.20); GLUCOSE 88 mg/dl (70-99); POTASSIUM 3.7 mmol/L (3.5-5.1); SODIUM 142 mmol/L (136-145); TOTAL PROTEIN 7.9 gm/dl (6.4-8.2)
--- NOTE | 2018-01-12 20:14 | DIAGNOSTIC IMAGING REPORT ---
CHEST ONE VIEW PORTABLE HISTORY: cough COMPARISON: Chest 06/19/2017. FINDINGS: The heart remains mildly enlarged. Stable linear densities within the left lung base suggesting scarring or atelectasis. No new focal lung consolidations. No pleural effusions. No pneumothorax. Prior cholecystectomy. IMPRESSION: No significant change compared to the prior study. No acute process. Electronically signed by: Jorge Alberto Dee M.D. 01/12/2018 8:13 PM Dictated Date/Time: 01/12/2018 8:12 PM
[2018-01-12] MEDS ORDERED: VANC5CAP PO (20:33)
[2018-01-12] MEDS ORDERED: ONDA4TAB10 SL (20:33)
[2018-01-12] MEDS ORDERED: ONDANSETRON HOME PACK 4MG OD TAB PO ONE (20:45)
[2018-01-12 21:04] VITALS: BP 134/78; PULSE 88; O2SAT 98
== END 2018-01-12 21:07 | disposition home or self-care (01) ==
LOC: C.EDB 18:44
DX: R11.0 Nausea (principal); E86.0 Dehydration; A04.72 Enterocolitis due to Clostridium difficile, not specified as recurrent; T37.8X5A Adverse effect of other specified systemic anti-infectives and antiparasitics, initial encounter; F41.9 Anxiety disorder, unspecified; I10 Essential (primary) hypertension; K21.9 Gastro-esophageal reflux disease without esophagitis; E78.5 Hyperlipidemia, unspecified; E03.9 Hypothyroidism, unspecified; Z96.659 Presence of unspecified artificial knee joint; Z79.82 Long term (current) use of aspirin; Z79.899 Other long term (current) drug therapy; Z88.5 Allergy status to narcotic agent; Z88.2 Allergy status to sulfonamides; Z88.8 Allergy status to other drugs, medicaments and biological substances; Z91.048 Other nonmedicinal substance allergy status

== ENCOUNTER 2020-02-20 09:37 | Observation (INO) ==
--- NOTE | 2020-02-20 10:12 | Emergency Department Note ---
Impression & Plan Abdominal pain, Ambulatory dysfunction, Constipation ED Provider Note NAME: STEFANY MCDUFFIE AGE: 79 SEX: F : 1940 ARRIVES VIA: Walk-In INFORMANT: Patient, ED PROVIDER(S): Arnoldo Guardado MD Chief Complaint: Abdominal pain HPI: Patient does present with concern for abdominal pain. The patient states she has been having symptoms since Saturday. Patient describes it as sharp nonradiating well localized. Patient did not take anything prior to arrival. The patient states that she has had decreased bowel movements and just has very small bowel movements. The patient states she has been passing gas occasion ally. Patient does have a prior history of hysterectomy but no recent procedures or surgeries. Patient denies chest pains, shortness of breath, nausea, fevers, chills, lower extremity swelling. Patient states that she was called by [facility] Dr. Hansen who referred the patient for evaluation. The patient states that her pain is uncomfortable to where she has difficulty with walking. Patient denies any dysuria or hematuria. The patient does state she has occasional bright red blood when she wipes after having a bowel movement believes this is related to constipation. ROS: See HPI for pertinent positives and negatives. A total of 10 systems were reviewed and otherwise negative. Past medical history: See below Surgical history: See below Social history: See below Physical Exam: GENERAL: Uncomfortable in appearance, wearing glasses and a mask. EYE EXAM: Normal conjunctiva. PERRL, no anisocoria and EOM's grossly intact w/o pain. NECK: Supple, no nuchal rigidity, no adenopathy, non-tender. No signs of meningismus. LUNGS: Clear to auscultation. Normal chest wall mechanics. HEART: NSR, no MRG. ABDOMEN: Abdomen soft, well-healed lower midline incisional scar, left lower quadrant discomfort, negative obturator's and psoas, normo-active bowel sounds, no masses, no rebound or guarding. BACK: No CVA TTP. SKIN: No rashes and no bruising. UPPER EXTREMITIES: Upper extremities are grossly normal. LOWER EXTREMITIES: Grossly normal, no edema. No hip pain bilaterally. NEURO EXAM: A&O x3, cranial nerves II-XII grossly intact, normal speech, moves all 4 extremities on command w/o issue. Differential diagnoses: Appendicitis, ovarian cyst, ovarian torsion, ectopic , TOA, PID, infections, diverticulitis, UTI, obstruction, mesenteric ischemia, aortic pathology, inflammatory bowel disease, renal colic, PUD, pancreatitis, biliary pathology, hernia, volvulus, constipation, as well as other pathologies. Course: Patient was seen and evaluated the bedside. Full history physical exam was performed. EKG: None Imaging Studies: Radiology results as stated below per my review in the radiologist's interpretation: CT report is from yesterday and which was read this morning. CT abd pelvis oral and IV con CT DOSE: 550.82 mGy.cm HISTORY: Pain ABDOMINAL PAIN, GENERALIZED R10.84 TECHNIQUE: Multiaxial CT images of the abdomen and pelvis were performed following the use of intravenous and oral contrast. A dose lowering technique was utilized adhering to the principles of ALARA. COMPARISON STUDY: 06/19/2017 FINDINGS: The lung bases are clear. The liver, spleen, gallbladder, pancreas, kidneys, and adrenal glands are within normal limits. No bowel wall thickening or obstruction. The pelvic organs are unremarkable. No suspicious lytic or b lastic osseous lesions. Prior cholecystectomy. Chronic colonic diverticulosis IMPRESSION: No significant abnormality identified within the abdomen or pelvis. Chronic colonic diverticulosis. Prior cholecystectomy. ACT 112: Negative or not required by law. The above report was generated using voice recognition software. It may contain grammatical, syntax or spelling errors. Electronically signed by: Pablo Menezes M.D. 02/20/2020 5:45 AM Dictated: 02/20/2043 Transcribed: 02/20/2043 Cardiac monitoring: An order was placed for continuous cardiac monitoring. The monitor shows a rate of 71 with sinus rhythm. Procedures: Rectal disimpaction Verbal consent was obtained from the patient and a rectal disimpaction was attempted; however, the patient did not have any stool in the rectal vault to be removed. MDM: Patient does present as a referral for abdominal pain. Blood work was obtained. I did review the patient's outpatient CT which was read earlier this morning shows no acute abnormality but patient does have chronic diverticulosis. Patient was given pain and nausea medication. Patient has a mild white count but normal hemoglobin and platelet count. Kidney function is fairly unremarkable slightly dehydrated given the patient's elevated BUN to creatinine ratio. Patient does have mild hypokalemia. Patient not have improvement in pain and was having difficulty with amatory dysfunction. Urinalysis is negative. I did review the CAT scan which does not show any acute intra-abdominal pathology concerning for surgery or antibiotics at this time. I did further discuss with the patient rectal disimpaction was attempted the patient did not have any stool in the vault. The patient does not feel as though she is comfortable or able to go home given her persistent pain and inability to have a full bowel movements and ambulatory dysfunction. I did speak with the [facility] medicine service and spoke with Dr. Santo. Patient is admitted to the medicine service. Past Med/Surg History Medical History C. difficile colitis Hypertension Hypothyroidism Surgical History Total knee replacement status Social History Preferred Language: Indonesian Feels Safe at Home: Yes Smoking Status: Never smoker Allergies Allergies Allergy/AdvReac Type Severity Reaction Status Date / Time morphine Allergy Severe anaphalytic Verified 02/20/20 10:50 Quinolones Allergy Mild UNKNOWN Verified 02/20/20 10:50 Sulfa (Sulfonamide Allergy Mild UNKNOWN Verified 02/20/20 10:50 Antibiotics) sulfamethoxazole Allergy Mild UNKNOWN Verified 02/20/20 10:50 trimethoprim Allergy Mild UNKNOWN Verified 02/20/20 10:50 adhesive Allergy Unknown REDNESS Verified 02/20/20 10:50 SKIN IRRITATION WITH SOME TAPES Cipro Allergy Unknown RASH Verified 10/25/17 10:27 ciprofloxacin Allergy Unknown RASH Verified 02/20/20 10:50 moxifloxacin Allergy Unknown rash Verified 02/20/20 10:50 pantoprazole Allergy Unknown rash Verified 02/20/20 10:50 cortisone AdvReac Mild UNKNOWN Verified 02/20/20 10:50 nitrofurantoin AdvReac Mild got very Verified 02/20/20 10:50 nauseated and diarrhea Home Meds Home Medications Medication Instructions Recorded Confirmed aspirin [Aspirin Low Dose] 81 mg PO DAILY 02/20/20 02/20/20 benzonatate 100 mg PO BID PRN 02/20/20 02/20/20 docusate sodium 50 mg PO DAILY 02/20/20 02/20/20 levothyroxine 88 mcg PO DAILY 02/20/20 02/20/20 polyethylene glycol 3350 [Miralax] 17 g PO BID 02/20/20 02/20/20 sertraline [Zoloft] 25 mg PO DAILY 02/20/20 02/20/20 simvastatin 10 mg PO DAILY 02/20/20 02/20/20 tolterodine 2 mg PO BID 02/20/20 02/20/20 trazodone 50 mg PO DAILY 02/20/20 02/20/20 varicella-zoster gE-AS01B (PF) 0.5 ml IM DIRECTED 02/20/20 02/20/20 [Shingrix (PF)] Results & Data (ED) Vital Signs Vital Signs - 24 hr 02/20/20 09:54 02/20/20 11:07 02/20/20 11:11 Temperature 37 C Temperature Source Oral Pulse Rate 71 55 L Respiratory Rate 18 15 15 Respiratory Effort / Characteristics Non-Labored Spontaneous Respiratory Depth Normal Respiratory Pattern Regular Blood Pressure 148/89 H 141/82 H Blood Pressure Mean 108 98 Blood Pressure Position Sitting Pulse Oximetry 97 92 91 Oxygen Delivery Method Room Air Sepsis Recent Fever Within 48 Hours No Sepsis New/Unexplained Change in Mental Status No Sepsis Action Taken by Nursing No Action Required 02/20/20 11:30 02/20/20 11:31 02/20/20 12:00 Temperature Temperature Source Pulse Rate 68 49 L Respiratory Rate 20 24 15 Respiratory Effort / Characteristics Respiratory Depth Respiratory Pattern Blood Pressure 153/75 H 149/65 H Blood Pressure Mean 105 77 Blood Pressure Position Pulse Oximetry 93 94 96 Oxygen Delivery Method Sepsis Recent Fever Within 48 Hours Sepsis New/Unexplained Change in Mental Status Sepsis Action Taken by Nursing 02/20/20 12:30 02/20/20 12:49 02/20/20 15:30 Temperature Temperature Source Pulse Rate 49 L 57 L 58 L Respiratory Rate 18 21 16 Respiratory Effort / Characteristics Respiratory Depth Respiratory Pattern Blood Pressure 146/72 H 157/82 H Blood Pressure Mean 97 96 Blood Pressure Position Pulse Oximetry 91 94 Oxygen Delivery Method Room Air Sepsis Recent Fever Within 48 Hours Sepsis New/Unexplained Change in Mental Status Sepsis Action Taken by Long Term Medications Current Medication List: was personally reviewed by me Laboratory Data Attestation: I reviewed the patient's lab results. Result diagrams: 02/20/20 10:55 02/20/20 10:55 Lab Results 0602/20/20 02/20/20 Range/Units 10:55 10:55 13:15 WBC 12.42 H (4.8-10.8) K/uL RBC 4.22 (4.2-5.4) M/uL Hgb 13.5 (12.0-16.0) g/dL Hct 41.0 (37-47) % MCV 97.2 (80-100) fL MCH 32.0 (25-34) pg MCHC 32.9 (32-36) g/dL RDW Std Deviation 51.3 H (36.4-46.3) fL RDW Coeff of Sarah 14.3 (11.5-14.5) % Plt Count 232 (130-400) K/uL MPV 10.4 (7.4-10.4) fL Immature Gran % (Auto) 0.2 % Neut % (Auto) 79.3 % Lymph % (Auto) 13.8 % [place] % (Auto) 5.8 % Eos % (Auto) 0.7 % Baso % (Auto) 0.2 % Neut # (Auto) 9.85 H (1.4-6.5) K/uL Lymph # (Auto) 1.71 (1.2-3.4) K/uL [place] # (Auto) 0.72 H (0.11-0.59) K/uL Eos # (Auto) 0.09 (0-0.5) K/uL Baso # (Auto) 0.02 (0-0.2) K/uL Immature Gran # (Auto) 0.03 H (0.00-0.02) K/uL Sodium 142 (136-145) mmol/L Potassium 3.3 L (3.5-5.1) mmol/L Chloride 105 (98-107) mmol/L Carbon Dioxide 31 (21-32) mmol/L Anion Gap 6.0 (3-11) BUN 29 H (7-18) mg/dl Creatinine 1.16 (0.6-1.2) mg/dl Est Cr Clr Drug Dosing Not Reportable Est GFR ( Amer) 52.6 Est GFR (Non-Af Amer) 45.4 BUN/Creatinine Ratio 25.3 H (10-20) Glucose 146 H (70-99) mg/dl Calcium 9.5 (8.5-10.1) mg/dl Total Bilirubin 0.4 (0.2-1) mg/dl AST 18 (15-37) U/L ALT 27 (12-78) U/L Alkaline Phosphatase 66 (45-117) U/L Total Protein 7.9 (6.4-8.2) gm/dl Albumin 3.8 (3.4-5.0) gm/dl Globulin 4.1 H (2.5-4.0) gm/dl Albumin/Globulin Ratio 0.9 (0.9-2) Lipase 138 (73-393) U/L Urine Color Yellow Urine Appearance Clear (Clear) Urine pH 6.5 (4.5-7.5) Ur Specific [place] 1.025 (1.000-1.030) Urine Protein Negative (Negative) Urine Glucose (UA) Negative (Negative) Urine Ketones Negative (Negative) Urine Blood Negative (Negative) Urine Nitrite Negative (Negative) Urine Bilirubin Negative (Negative) Urine Urobilinogen Negative (Negative) Ur Leukocyte Esterase Negative (Negative) Administered Medications Discontinued Medications Fentanyl Citrate (Fentanyl Citrate) 50 mcg IV NOW STA Stop: 02/20/20 10:30 Last Admin: 02/20/20 11:01 Dose: 50 mcg Documented by: [id number] Fentanyl Citrate (Fentanyl Citrate) 50 mcg IV NOW STA Stop: 02/20/20 11:49 Last Admin: 02/20/20 13:57 Dose: 50 mcg Documented by: [id number] Fentanyl Citrate (Fentanyl Citrate) Confirm Administered Dose 100 mcg .ROUTE .STK-MED ONE Stop: 02/20/20 13:56 Last Admin: 02/20/20 13:57 Dose: Not Given Documented by: [id number] Sodium Chloride (Nss) 500 mls @ 999 mls/hr IV .Q31M PRACHI Stop: 02/20/20 11:00 Last Infusion: 02/20/20 11:54 Dose: 0 mls/hr Documented by: [id number] Admin: 02/20/20 11:02 Dose: 999 mls/hr Documented by: [id number] Ondansetron HCl (Zofran) 4 mg IV NOW STA Stop: 02/20/20 10:30 Last Admin: 02/20/20 11:02 Dose: 4 mg Documented by: [id number] Senna/Docusate Sodium (Senokot S) 1 tab PO NOW STA Stop: 02/20/20 11:49 Last Admin: 02/20/20 13:04 Dose: 1 tab Documented by: [id number] Discharge Plan Visit Data Chief Complaint: Abdominal Pain Stated Complaint: PAIN IN BOWEL AND LOWER BACK ED Provider: Arnoldo Guardado Discharge Problem: Abdominal pain, Ambulatory dysfunction, Constipation Forms Stand Alone Forms: [facility] Prescriptions Prescriptions: No Action tolterodine 2 mg tablet 2 mg PO BID RF: 0 Shingrix (PF) 50 mcg/0.5 mL suspension for reconstitution 0.5 ml IM DIRECTED RF: 0 trazodone 50 mg Tablet 50 mg PO DAILY RF: 0 polyethylene glycol 3350 [Miralax] 17 gram Powder In Packet 17 g PO BID RF: 0 simvastatin 10 mg Tablet 10 mg PO DAILY RF: 0 docusate sodium 50 mg Capsule 50 mg PO DAILY RF: 0 aspirin [Aspirin Low Dose] 81 mg Tablet,Delayed Release (Dr/Ec) 81 mg PO DAILY RF: 0 levothyroxine 88 mcg Tablet 88 mcg PO DAILY RF: 0 benzonatate 100 mg Capsule 100 mg PO BID PRN (Reason: Cough) RF: 0 sertraline [Zoloft] 25 mg Tablet 25 mg PO DAILY RF: 0 Discharge Problem: Abdominal pain Qualifiers: Abdominal location: left lower quadrant Qualified Code(s): R10.32 - Left lower quadrant pain Constipation Qualifiers: Constipation type: unspecified constipation type Qualified Code(s): K59.00 - Co nstipation, unspecified
[2020-02-20] MEDS ORDERED: fentaNYL citrate 100 MCG/2 ML VIAL IV STA ×2 (10:29→11:48)
[2020-02-20] MEDS ORDERED: ONDANSETRON INJ 2 MG/ML 2 ML VIAL IV STA (10:29)
[2020-02-20] MEDS ORDERED: SODIUM CHLORIDE 0.9% 500 ML IV SCH (10:30)
[2020-02-20 11:07] LABS: Basophils # (auto) 0.02 K/uL (0-0.2); Basophils % (auto) 0.2 %; Eosinophils # (auto) 0.09 K/uL (0-0.5); Eosinophils % (auto) 0.7 %; Hemoglobin 13.5 g/dL (12.0-16.0); Immature Granulocytes # (auto) 0.03 K/uL (0.00-0.02); Immature Granulocytes % (auto) 0.2 %; Lymphocytes # (auto) 1.71 K/uL (1.2-3.4); Lymphocytes % (auto) 13.8 %; Mean Corpuscular Hgb Conc 32.9 g/dL (32-36); Mean Corpuscular Volume 97.2 fL (80-100); Mean Platelet Volume 10.4 fL (7.4-10.4); Monocytes # (auto) 0.72 K/uL (0.11-0.59); Monocytes % (auto) 5.8 %; Neutrophils # (auto) 9.85 K/uL (1.4-6.5); Neutrophils % (auto) 79.3 %; Platelet Count 232 K/uL (130-400); RDW Coefficient of Variation 14.3 % (11.5-14.5); RDW Standard Deviation 51.3 fL (36.4-46.3); Red Blood Count 4.22 M/uL (4.2-5.4); White Blood Count 12.42 K/uL (4.8-10.8)
[2020-02-20 11:24] LABS: Alanine Aminotransferase 27 U/L (12-78); Albumin Level 3.8 gm/dl (3.4-5.0); Aspartate Aminotransferase 18 U/L (15-37); BUN Creatinine Ratio 25.3 (10-20); Blood Urea Nitrogen 29 mg/dl (7-18); Calcium 9.5 mg/dl (8.5-10.1); Carbon Dioxide 31 mmol/L (21-32); Chloride 105 mmol/L (98-107); Est GFR (African American) 52.6; Est GFR (Non-African American) 45.4; Glucose 146 mg/dl (70-99); Lipase 138 U/L (73-393); Potassium 3.3 mmol/L (3.5-5.1); Sodium 142 mmol/L (136-145)
[2020-02-20 11:26] LABS: Albumin Globulin Ratio 0.9 (0.9-2); Alkaline Phosphatase 66 U/L (45-117); Bilirubin,Total 0.4 mg/dl (0.2-1); Globulin 4.1 gm/dl (2.5-4.0); Total Protein 7.9 gm/dl (6.4-8.2)
[2020-02-20] MEDS ORDERED: DOCUSATE SODIUM/SENNA 50/8.6MG TAB PO STA (11:48)
[2020-02-20 13:26] LABS: Appearance Urine Clear (Clear); Bilirubin Urine Negative (Negative); Blood Urine Negative (Negative); Color Urine Yellow; Glucose Urine UA Negative (Negative); Ketones Urine Negative (Negative); Leukocyte Esterase Urine Negative (Negative); Nitrite Urine Negative (Negative); Protein Urine Negative (Negative); Specific Gravity Urine 1.025 (1.000-1.030); Urobilinogen Urine Negative (Negative); pH Urine 6.5 (4.5-7.5)
[2020-02-20] MEDS ORDERED: fentaNYL citrate 100 MCG/2 ML VIAL ONE (13:55)
[2020-02-20] MEDS ORDERED: POTASSIUM CHLORIDE 20 MEQ TABCR PO STA (15:53)
--- NOTE | 2020-02-20 15:53 | History & Physical Report ---
Date of Service February 20, 2020 Assessment & Plan (1) Abdominal pain: (2) Constipation: History of Irritable bowel syndrome with constipation as per outpatient records as an entered diagnosis in 05/2019 History of malignant neoplasm of the colon in the past as per records -Patient presents to the ED on 02/20/2020 has been having abdominal pain and associated constipation for 5 days, patient denies acute trauma to her abdomen or to her back. The abdomen pain is more of the left side and also left sided back pain. Patient's CT abdomen imaging remarkable for diverticulosis only. patient denies fevers. patient reports because of left sided pain, she has been having problems with walking. Emergency room physician reports that patient not responding to bowel regimen in the ED and no stool on attempted disimpaction and that patient not walking well enough to leave the emergency room after current ED pain medications given as IV Fentanyl doses -when seen by hospitalist in the ED, patient does not seem to be in terrible acute back pain as she is able to sit up on the bed for the exam -will place under observation, minimize narcotic pain medication to encourage bowel movement; pain medications to be prn acetaminophen, prn Toradaol, prn baclofen if back spasm. set bowel regimen to be senna BID and Miralax q6 hours, can consider tap water enema when on medical dodd, give IV fluids Ambulatory Dysfunction from back pain -pain management as above -PT/OT evaluation Hypothyroidism -continue Levothyroxine as 112 mcg daily as per clinic notes -check TSH Hypertension -continue home dose chorthalidone 25 mg daily -continue aspirin -continue simvastatin 40 mg daily as per outpatient notes -check creatinine kinase Chronic Kidney Disease stage III -monitor Depression -mood is euthymic currently -continue sertraline home medication Obstructive Sleep apnea on CPAP -patient reports her daughter will bring her CPAP for night DVT prophylaxis: SCDs Code Status is DNR/DNI as per my conversation with the patient Abril [phone], daughter Maris [phone] History of Present Illness -Patient presents to the ED on 02/20/2020 has been having abdominal pain and associated constipation for 5 days, patient denies acute trauma to her abdomen or to her back. The abdomen pain is more of the left side and also left sided back pain. Patient's CT abdomen imaging remarkable for diverticulosis only. patient denies fevers. patient reports because of left sided pain, she has been having problems with walking. Emergency room physician reports that patient not responding to bowel regimen in the ED and no stool on attempted disimpaction and that patient not walking well enough to leave the emergency room after current ED pain medications given as IV Fentanyl doses -when seen by hospitalist in the ED, patient does not seem to be in terrible acute back pain as she is able to sit up on the bed for the exam patient denies fevers. denies vomiting. denies nausea. no dizziness. no headache. no chills. no problems with urination Family history of breast cancer of sister Primary Care Provider: Riki Benjamin MD Allergies Allergy/AdvReac Type Severity Reaction Status Date / Time morphine Allergy Severe anaphalytic Verified 02/20/20 10:50 Quinolones Allergy Mild UNKNOWN Verified 02/20/20 10:50 Sulfa (Sulfonamide Allergy Mild UNKNOWN Verified 02/20/20 10:50 Antibiotics) sulfamethoxazole Allergy Mild UNKNOWN Verified 02/20/20 10:50 trimethoprim Allergy Mild UNKNOWN Verified 02/20/20 10:50 adhesive Allergy Unknown REDNESS Verified 02/20/20 10:50 SKIN IRRITATION WITH SOME TAPES Cipro Allergy Unknown RASH Verified 10/25/17 10:27 ciprofloxacin Allergy Unknown RASH Verified 02/20/20 10:50 moxifloxacin Allergy Unknown rash Verified 02/20/20 10:50 pantoprazole Allergy Unknown rash Verified 02/20/20 10:50 cortisone AdvReac Mild UNKNOWN Verified 02/20/20 10:50 nitrofurantoin AdvReac Mild got very Verified 02/20/20 10:50 nauseated and diarrhea Home Medications Home Medications Medication Instructions Recorded Confirmed Type aspirin [Aspirin Low Dose] 81 mg PO DAILY 02/20/20 02/20/20 History benzonatate 100 mg PO BID PRN 02/20/20 02/20/20 History chlorthalidone 25 mg PO DAILY 02/20/20 02/20/20 History docusate sodium 50 mg PO DAILY 02/20/20 02/20/20 History latanoprost 1 drp OPHTHALMIC (EYE) PM 02/20/20 02/20/20 History levothyroxine 112 mcg PO DAILY 02/20/20 02/20/20 History polyethylene glycol 3350 [Miralax] 17 g PO BID 02/20/20 02/20/20 History sertraline 100 mg PO DAILY 02/20/20 02/20/20 History simvastatin 40 mg PO DAILY 02/20/20 02/20/20 History tolterodine 1 mg PO BID 02/20/20 02/20/20 History varicella-zoster gE-AS01B (PF) 0.5 ml IM DIRECTED 02/20/20 02/20/20 History [Shingrix (PF)] Past Med/Surg History Medical History C. difficile colitis Hypertension Hypothyroidism Surgical History Total knee replacement status Social History Preferred Language: Persian Feels Safe at Home: Yes Smoking Status: Never smoker Review of Systems Review of Systems: All systems reviewed & are unremarkable except as noted in HPI & below Physical Exam Constitutional: WD/WN, vitals as above Eyes: PERRL, conjunctivae normal, anicteric sclerae EOM intact bilaterally ENMT: external ear and nose normal, oropharynx normal Neck: trachea midline, no thyromegaly normal visual inspection Respiratory: normal respiratory effort, lungs clear to auscultation Cardiovascular: Rate/Rhythm: regular rate Gastrointestinal (Abdomen): Inspection/Auscultation: abdomen normal to inspection and normal bowel sounds Percussion/Palpation: abdomen soft Neurologic: PERRL, EOMI, accommodation nl, no face palsy, no dysarthria CN's II-XI intact bilaterally Psychiatric: A+Ox3, euthymic affect Results & Data Results & Data ([facility]) Vital Signs (Past 12 Hours) Vital Signs Temp Pulse Resp BP Pulse Ox 02/20/20 15:30 58 L 16 157/82 H 94 02/20/20 12:49 57 L 21 02/20/20 12:30 49 L 18 146/72 H 91 02/20/20 12:00 49 L 15 149/65 H 96 02/20/20 11:31 68 24 94 02/20/20 11:30 20 153/75 H 93 02/20/20 11:11 55 L 15 91 02/20/20 11:07 15 141/82 H 92 02/20/20 09:54 37 C 71 18 148/89 H 97 (1) Abdominal pain Abdominal location: left lower quadrant Qualified Code(s): R10.32 - Left lower quadrant pain (2) Constipation Constipation type: unspecified constipation type Qualified Code(s): K59.00 - Constipation, unspecified
[2020-02-20] MEDS ORDERED: ACETAMINOPHEN 325 MG TAB PO PRN (15:54)
[2020-02-20] MEDS ORDERED: BACLOFEN 10 MG TAB PO PRN (15:54)
[2020-02-20] MEDS ORDERED: KETOROLAC TROMETHAMINE 15 MG/ML VIAL IV PRN (15:55)
[2020-02-20] MEDS ORDERED: SODIUM CHLORIDE 0.9% 1000ML 1,000 ML IV SCH (16:00)
[2020-02-20 16:23] LABS: Thyroid Stimulating Hormone 11.9 uIu/ml (0.300-4.500)
[2020-02-20] MEDS ORDERED: TRAZODONE HCL 50 MG TAB PO PRN (16:31)
[2020-02-20 16:35] LABS: T4 Free Thyroxine 0.87 ng/dl (0.8-1.6)
[2020-02-20 19:40] LABS: T4 Thyroxine 6.1 mcg/dl (4.5-10.9)
[2020-02-20 19:41] LABS: T3 Free 1.88 pg/ml (2.3-4.2); T3 Total 0.67 ng/ml (0.60-1.81)
[2020-02-20] MEDS: SENNA 8.6 MG TAB PO SCH (20:04)
[2020-02-20] MEDS: TOLTERODINE TARTRATE 1 MG TAB PO SCH (20:27)
[2020-02-20] MEDS: POLYETHYLENE (MIRALAX) 17 GM PACK PO SCH (20:31)
[2020-02-20] MEDS ORDERED: LATANOPROST 0.005% OP SOLN 2.5 ML BTL OP SCH (21:00)
[2020-02-21] MEDS: POLYETHYLENE (MIRALAX) 17 GM PACK PO SCH (05:40)
[2020-02-21] MEDS ORDERED: LEVOTHYROXINE SODIUM 112 MCG TABLET PO SCH (06:30)
[2020-02-21] MEDS ORDERED: LEVOTHYROXINE SODIUM 150 MCG TABLET PO SCH (06:30)
[2020-02-21 08:17] LABS: BUN Creatinine Ratio 20.5 (10-20); Blood Urea Nitrogen 25 mg/dl (7-18); Calcium 9.4 mg/dl (8.5-10.1); Carbon Dioxide 30 mmol/L (21-32); Chloride 107 mmol/L (98-107); Est GFR (African American) 49.5; Est GFR (Non-African American) 42.7; Glucose 104 mg/dl (70-99); Potassium 3.9 mmol/L (3.5-5.1); Sodium 141 mmol/L (136-145)
[2020-02-21] MEDS: SENNA 8.6 MG TAB PO SCH (08:28)
[2020-02-21] MEDS: TOLTERODINE TARTRATE 1 MG TAB PO SCH (08:28)
[2020-02-21] MEDS ORDERED: SIMVASTATIN 40 MG TAB PO SCH (09:00)
[2020-02-21] MEDS ORDERED: CHLORTHALIDONE 25 MG TAB PO SCH (09:00)
[2020-02-21] MEDS ORDERED: ASPIRIN 81 MG ECTAB PO SCH (09:00)
[2020-02-21] MEDS ORDERED: SERTRALINE HCL 100 MG TABLET PO SCH (09:00)
--- NOTE | 2020-02-21 10:56 | Hospitalist Progress Note ---
Date of Service February 21, 2020 Assessment & Plan (1) Abdominal pain: (2) Constipation: History of Irritable bowel syndrome with constipation as per outpatient records as an entered diagnosis in 05/2019 History of malignant neoplasm of the colon in the past as per records -Patient presents to the ED on 02/20/2020 has been having abdominal pain and associated constipation for 5 days, patient denies acute trauma to her abdomen or to her back. The abdomen pain is more of the left side and also left sided back pain. Patient's CT abdomen imaging remarkable for diverticulosis only. patient denies fevers. patient reports because of left sided pain, she has been having problems with walking. Emergency room physician reports that patient not responding to bowel regimen in the ED and no stool on attempted disimpaction and that patient not walking well enough to leave the emergency room after current ED pain medications given as IV Fentanyl doses -when seen by hospitalist in the ED, patient does not seem to be in terrible acute back pain as she is able to sit up on the bed for the exam -was placed under observation on 02/20/2020, minimize narcotic pain medication to encourage bowel movement; pain medications to be prn acetaminophen, prn Toradaol, prn baclofen if back spasm. set bowel regimen to be senna BID and Miralax q6 hours -02/21/2020: discharge from hospital to home as patient made bowel movements with relief of abdominal pain and back pain, able to ambulate with therapist without back pain Ambulatory Dysfunction from back pain -resolved Hypothyroidism Sinus bradycardia -outpatient 12/28/2019 TSH 8.81 and free T4 as 1.02 outpatient 02/19/2020 TSH 7.09 and free T4 as 0.92 oddly the hospital TSH 02/20/2020 is far more elevated as 11.9 but the free T4 close to outpatient numbers as 0.87 (also total T4 6.1 mcg/dl, free T3 low as 1.88 pg/ml, Total T3 0.67 ng/ml). despite clinic and hospital TSH discrepancies, patient's hypothyroidism may play a role in her constipation and she is also noted to have asymptomatic bradycardia in the 50s. -her reports the 112 mcg daily of levothyroxine bottle dates to a 12/31/2019. so will increase levothyroxine dosage in hospital and upon discharge as 150 mcg daily. 1st dose given on 02/21/2020 -discharge medication of levothyroxine of 150 mcg sent electronically to [facility], [place] [address] Hypertension -given aspirin in the hospital and simvastatin 40 mg -patient should make appointment to have follow up with family medical doctor -there is some discrepancy in med reconciliation on patient's blood pressure medications at home. patient was given chlorthalidone 25 mg daily but she insists that she takes losartan daily at home like her . (patient also utilizes more than 1 pharmacy provider for home medications) advise that patient follow up with primary care doctor and bring all her home medications for medication reconciliation Chronic Kidney Disease stage III -at [facility] Depression -mood is euthymic currently -continue sertraline home medication Obstructive Sleep apnea on CPAP -CPAP for night time Code Status is DNR/DNI as per my conversation with the patient Abril [phone], daughter Maris [phone] Admission and Anticipated Discharge Date Admission Date: February 20, 2020 Subjective discharge from hospital to home as patient made bowel movements with relief of abdominal pain and back pain, able to ambulate with therapist without back pain on room air. no shortness of breath. no palpitations. no chest pain. no dizziness. no lightheadedness. no nausea. no vomiting Review of Systems Review of Systems: All systems reviewed & are unremarkable except as noted in Subjective Physical Exam Constitutional: WD/WN, vitals as above Eyes: PERRL, conjunctivae normal, anicteric sclerae EOM intact bilaterally ENMT: external ear and nose normal, oropharynx normal Neck: trachea midline, no thyromegaly normal visual inspection Respiratory: normal respiratory effort, lungs clear to auscultation Cardiovascular: Rate/Rhythm: regular rhythm and + bradycardic Gastrointestinal (Abdomen): Inspection/Auscultation: abdomen normal to inspection and normal bowel sounds Percussion/Palpation: abdomen soft Neurologic: PERRL, EOMI, accommodation nl, no face palsy, no dysarthria CN's II-XI intact bilaterally Psychiatric: A+Ox3, euthymic affect Results & Data Results & Data ([facility]) Vital Signs (Past 12 Hours) Vital Signs Temp Pulse Resp BP Pulse Ox 02/21/20 07:41 36.9 C 51 L 16 115/68 92 (1) Abdominal pain Abdominal location: left lower quadrant Qualified Code(s): R10.32 - Left lower quadrant pain (2) Constipation Constipation type: unspecified constipation type Qualified Code(s): K59.00 - Constipation, unspecified
--- NOTE | 2020-02-21 11:01 | Discharge Summary ---
Date of Service February 21, 2020 Admission HPI Per Admitting Provider -Patient presents to the ED on 02/20/2020 has been having abdominal pain and associated constipation for 5 days, patient denies acute trauma to her abdomen or to her back. The abdomen pain is more of the left side and also left sided back pain. Patient's CT abdomen imaging remarkable for diverticulosis only. patient denies fevers. patient reports because of left sided pain, she has been having problems with walking. Emergency room physician reports that patient not responding to bowel regimen in the ED and no stool on attempted disimpaction and that patient not walking well enough to leave the emergency room after current ED pain medications given as IV Fentanyl doses -when seen by hospitalist in the ED, patient does not seem to be in terrible acute back pain as she is able to sit up on the bed for the exam patient denies fevers. denies vomiting. denies nausea. no dizziness. no headache. no chills. no problems with urination Family history of breast cancer of sister Principal Diagnosis Abdominal pain Constipation Ambulatory Dysfunction from back pain HYPOTHYROIDISM Sinus bradycardia Hypertension Obstructive Sleep apnea on CPAP Discharge Exam Constitutional WD/WN, vitals as above Eyes PERRL, conjunctivae normal, anicteric sclerae EOM intact bilaterally ENMT external ear and nose normal, oropharynx normal Neck trachea midline, no thyromegaly normal visual inspection Respiratory normal respiratory effort, lungs clear to auscultation Cardiovascular Rate/Rhythm: regular rhythm and + bradycardic Gastrointestinal (Abdomen) Inspection/Auscultation: abdomen normal to inspection and normal bowel sounds Percussion/Palpation: abdomen soft Neurologic PERRL, EOMI, accommodation nl, no face palsy, no dysarthria CN's II-XI intact bilaterally Psychiatric A+Ox3, euthymic affect Discharge Data Allergies Allergy/AdvReac Type Severity Reaction Status Date / Time morphine Allergy Severe anaphalytic Verified 02/20/20 10:50 Quinolones Allergy Mild UNKNOWN Verified 02/20/20 10:50 Sulfa (Sulfonamide Allergy Mild UNKNOWN Verified 02/20/20 10:50 Antibiotics) sulfamethoxazole Allergy Mild UNKNOWN Verified 02/20/20 10:50 trimethoprim Allergy Mild UNKNOWN Verified 02/20/20 10:50 adhesive Allergy Unknown REDNESS Verified 02/20/20 10:50 SKIN IRRITATION WITH SOME TAPES Cipro Allergy Unknown RASH Verified 10/25/17 10:27 ciprofloxacin Allergy Unknown RASH Verified 02/20/20 10:50 moxifloxacin Allergy Unknown rash Verified 02/20/20 10:50 pantoprazole Allergy Unknown rash Verified 02/20/20 10:50 cortisone AdvReac Mild UNKNOWN Verified 02/20/20 10:50 nitrofurantoin AdvReac Mild got very Verified 02/20/20 10:50 nauseated and diarrhea Consultations 02/20/20 15:53 Consult Case Management - Discharge Planning Routine 02/20/20 16:02 ED Decision to Admit Stat Hospital Course (1) Abdominal pain: (2) Constipation: History of Irritable bowel syndrome with constipation as per outpatient records as an entered diagnosis in 05/2019 History of malignant neoplasm of the colon in the past as per records -Patient presents to the ED on 02/20/2020 has been having abdominal pain and associated constipation for 5 days, patient denies acute trauma to her abdomen or to her back. The abdomen pain is more of the left side and also left sided back pain. Patient's CT abdomen imaging remarkable for diverticulosis only. patient denies fevers. patient reports because of left sided pain, she has been having problems with walking. Emergency room physician reports that patient not responding to bowel regimen in the ED and no stool on attempted disimpaction and that patient not walking well enough to leave the emergency room after current ED pain medications given as IV Fentanyl doses -when seen by hospitalist in the ED, patient does not seem to be in terrible acute back pain as she is able to sit up on the bed for the exam -was placed under observation on 02/20/2020, minimize narcotic pain medication to encourage bowel movement; pain medications to be prn acetaminophen, prn Toradaol, prn baclofen if back spasm. set bowel regimen to be senna BID and Miralax q6 hours -02/21/2020: discharge from hospital to home as patient made bowel movements with relief of abdominal pain and back pain, able to ambulate with therapist without back pain Ambulatory Dysfunction from back pain -resolved Hypothyroidism Sinus bradycardia -outpatient 12/28/2019 TSH 8.81 and free T4 as 1.02 outpatient 02/19/2020 TSH 7.09 and free T4 as 0.92 oddly the hospital TSH 02/20/2020 is far more elevated as 11.9 but the free T4 close to outpatient numbers as 0.87 (also total T4 6.1 mcg/dl, free T3 low as 1.88 pg/ml, Total T3 0.67 ng/ml). despite clinic and hospital TSH discrepancies, patient's hypothyroidism may play a role in her constipation and she is also noted to have asymptomatic bradycardia in the 50s. -her reports the 112 mcg daily of levothyroxine bottle dates to a 12/31/2019. so will increase levothyroxine dosage in hospital and upon discharge as 150 mcg daily. 1st dose given on 02/21/2020 -discharge medication of levothyroxine of 150 mcg sent electronically to [facility], [place] [address] Hypertension -given aspirin in the hospital and simvastatin 40 mg -patient should make appointment to have follow up with family medical doctor -there is some discrepancy in med reconciliation on patient's blood pressure medications at home. patient was given chlorthalidone 25 mg daily but she insists that she takes losartan daily at home like her . (patient also utilizes more than 1 pharmacy provider for home medications) advise that patient follow up with primary care doctor and bring all her home medications for medication reconciliation Chronic Kidney Disease stage III -at basline Depression -mood is euthymic currently -continue sertraline home medication Obstructive Sleep apnea on CPAP -CPAP for night time Code Status is DNR/DNI as per my conversation with the patient Abril [phone], daughter Maris [phone] Total Time Total Time Spent Total Time Spent (In Minutes): 40 minutes Total Time Includes: Examination of the Patient, Discharge Planning, Medication Reconciliation and Communication With Other Providers Discharge Plan Discharge Items Patient Disposition: Home - Self-Care Reason For Visit: ABDOMINAL PAIN, BACK PAIN, CONSTIPATION Discharge Diagnosis: Abdominal pain Constipation Ambulatory Dysfunction from back pain HYPOTHYROIDISM Sinus bradycardia Hypertension Obstructive Sleep apnea on CPAP Activity: Per Instructions section Non-emergency contact: Primary Care Provider Call non-emergency contact if: you have any medication questions Follow-up/Referrals: Riki Benjamin MD [Primary Care Provider] - Diet: Regular Addtl Attending Provider Instructions: discharge from hospital to home as patient made bowel movements with relief of abdominal pain and back pain, able to ambulate with therapist without back pain patient should make appointment to have follow up with family medical doctor outpatient 12/28/2019 TSH 8.81 and free T4 as 1.02 outpatient 02/19/2020 TSH 7.09 and free T4 as 0.92 oddly the hospital TSH 02/20/2020 is far more elevated as 11.9 but the free T4 close to outpatient numbers as 0.87 (also total T4 6.1 mcg/dl, free T3 low as 1.88 pg/ml, Total T3 0.67 ng/ml). despite clinic and hospital TSH discrepancies, patient's hypothyroidism may play a role in her constipation and she is also noted to have asymptomatic bradycardia in the 50s. her reports the 112 mcg daily of levothyroxine bottle dates to a 12/31/2019. so will increase levothyroxine dosage in hospital and upon discharge as 150 mcg daily. 1st dose given on 02/21/2020 discharge medication of levothyroxine of 150 mcg sent electronically to [facility], [place] [address] there is some discrepancy in med reconciliation on patient's blood pressure medications at home. patient was given chlorthalidone 25 mg daily but she insists that she takes losartan daily at home like her . (patient also utilizes more than 1 pharmacy provider for home medications) advise that patient follow up with primary care doctor and bring all her home medications for medication reconciliation Pending Studies at Discharge: No Stand-Alone Forms: My [facility] Covacsis, Smoking Cessation Medications and DC Order Prescriptions: New levothyroxine [Synthroid] 150 mcg Tablet 150 mcg PO DAILYBB 30 Days Qty: 30 RF: 0 Continued Shingrix (PF) 50 mcg/0.5 mL suspension for reconstitution 0.5 ml IM DIRECTED RF: 0 polyethylene glycol 3350 [Miralax] 17 gram Powder In Packet 17 g PO BID RF: 0 docusate sodium 50 mg Capsule 50 mg PO DAILY RF: 0 aspirin [Aspirin Low Dose] 81 mg Tablet,Delayed Release (Dr/Ec) 81 mg PO DAILY RF: 0 benzonatate 100 mg Capsule 100 mg PO BID PRN (Reason: Cough) RF: 0 chlorthalidone 25 mg tablet 25 mg PO DAILY RF: 0 tolterodine 2 mg tablet 1 mg PO BID RF: 0 latanoprost 0.005 % Drops 1 drp OPHTHALMIC (EYE) PM RF: 0 sertraline 100 mg Tablet 100 mg PO DAILY RF: 0 simvastatin 40 mg Tablet 40 mg PO DAILY RF: 0 Discontinued levothyroxine 112 mcg Tablet 112 mcg PO DAILY RF: 0 Discharge Orders: Discharge Order (Routine); Ordered 02/21/20 Ordered By: Arcadio Santo Admission Data Admit Date/Time: 02/20/20 16:10 Attending Provider: Arcadio Santo Admit Provider: Arcadio Santo Primary Care Provider: Riki Benjamin Other Providers: Arcadio Santo
== END 2020-02-21 11:37 | disposition home or self-care (01) ==
LOC: ED 09:37 → 2N 09:37

== ENCOUNTER 2022-03-07 08:25 | Observation (INO) ==
[2022-03-07] MEDS ORDERED: SODIUM CHLORIDE 0.9% 500 ML IV ONE (09:19)
--- NOTE | 2022-03-07 09:32 | Emergency Department Note ---
History of Present Illness General Chief complaint: Suture/Staple/Packing Removal Stated complaint: REMOVAL OF NOSE PACKING Time Seen by Provider: 03/07/22 08:47 History of Present Illness Maximum Pain Intensity: 0 This is a 81-year-old female with a history of hypertension returns to the emergency department for removal of nasal packing that was placed in the right side of the nose 4 days ago. She is not feeling very well, and has been having intermittent headache, pain in her teeth, and pain in her forehead over the past few days, not currently present. She has not been eating or drinking very much. She tried taking tylenol for the headache with some minimal relief. She is uns ure whether she is felt blood dripping down the back of her throat over the past few days. She has not been using her CPAP machine due to the nasal packing which she has used for years. She stopped taking the Keflex that was prescribed after 2 days of use thinking her symptoms were related to the antibiotics. She endorses chills. Denies any fevers, body aches, sinus congestion, sore throat, neck pain, chest pain, shortness of breath, nausea, vomiting, leg pain or leg swelling. Does take metoprolol. Denies any other significant cardiac or pulmonary history although states she follows with a gate tender through [facility]. No history of DVT or PE. Home Medications Medication Instructions Recorded Confirmed Type aspirin 81 mg tablet,delayed 81 mg PO DAILY 02/20/20 11/27/21 History release (Rahul Low Dose Aspirin) benzonatate 100 mg capsule 100 mg PO BID PRN Cough 02/20/20 11/27/21 History chlorthalidone 25 mg tablet 25 mg PO DAILY 02/20/20 11/27/21 History docusate sodium 50 mg capsule 50 mg PO DAILY 02/20/20 11/27/21 History latanoprost 0.005 % eye drops 1 drp ophthalmic (eye) PM 02/20/20 11/27/21 History polyethylene glycol 3350 17 gram 17 g PO BID 02/20/20 11/27/21 History oral powder packet (Miralax) sertraline 100 mg tablet 100 mg PO DAILY 02/20/20 11/27/21 History simvastatin 40 mg tablet 40 mg PO DAILY 02/20/20 11/27/21 History tolterodine 2 mg tablet 1 mg PO BID 02/20/20 11/27/21 History varicella-zoster glycoE [id number] 0.5 ml IM DIRECTED 02/20/20 11/27/21 His tory adj(PF) 50 mcg/0.5 mL IM susp, kit (Shingrix (PF)) cephalexin 500 mg capsule 500 mg PO TID 7 days #21 caps 03/03/22 Rx Allergies Allergy/AdvReac Type Severity Reaction Status Date / Time morphine Allergy Severe anaphalytic Verified 11/27/21 11:06 Quinolones Allergy Mild UNKNOWN Verified 11/27/21 11:06 Sulfa (Sulfonamide Allergy Mild UNKNOWN Verified 11/27/21 11:06 Antibiotics) sulfamethoxazole Allergy Mild UNKNOWN Verified 11/27/21 11:06 trimethoprim Allergy Mild UNKNOWN Verified 11/27/21 11:06 adhesive Allergy Unknown REDNESS Verified 11/27/21 11:06 SKIN IRRITATION WITH SOME TAPES Cipro Allergy Unknown RASH Verified 10/25/17 10:27 ciprofloxacin Allergy Unknown RASH Verified 11/27/21 11:06 moxifloxacin Allergy Unknown rash Verified 11/27/21 11:06 pantoprazole Allergy Unknown rash Verified 11/27/21 11:06 cortisone AdvReac Mild UNKNOWN Verified 11/27/21 11:06 nitrofurantoin AdvReac Mild got very Verified 11/27/21 11:06 nauseated and diarrhea Past Med/Surg History Medical History C. 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 and A total of 10 systems reviewed and were otherwise negative Physical Exam Vital Signs Vital Signs - 24 hr 03/07/22 08:29 03/07/22 09:16 03/07/22 09:49 Temperature 97.9 F Temperature Source Temporal Artery Scan Pulse Rate 95 H Pulse Rate [Apical] 84 91 H Pulse Rhythm [Apical] Regular Regular Pulse Strength [Apical] Normal Normal Respiratory Rate 18 18 18 Respiratory Effort / Characteristics Non-Labored Respiratory Depth Normal Respiratory Pattern Regular Blood Pressure 100/67 Blood Pressure [Left Arm] 127/77 109/74 Blood Pressure Mean 78 Blood Pressure Mean [Left Arm] 93 85 Blood Pressure Position [Left Arm] Lying Lying Pulse Oximetry 92 87 L 95 Oxygen Delivery Method Room Air Nasal Cannula Oxygen Flow Rate 3 Sepsis Recent Fever Within 48 Hours No Sepsis New/Unexplained Change in Mental Status No Sepsis Action Taken by Nursing No Action Required 03/07/22 12:00 Temperature Temperature Source Pulse Rate Pulse Rate [Apical] 79 Pulse Rhythm [Apical] Regular Pulse Strength [Apical] Normal Respiratory Rate 18 Respiratory Effort / Characteristics Non-Labored Respiratory Depth Normal Respiratory Pattern Regular Blood Pressure Blood Pressure [Left Arm] 132/93 Blood Pressure Mean Blood Pressure Mean [Left Arm] 106 Blood Pressure Position [Left Arm] Lying Pulse Oximetry 91 Oxygen Delivery Method Room Air Oxygen Flow Rate Sepsis Recent Fever Within 48 Hours Sepsis New/Unexplained Change in Mental Status Sepsis Action Taken by Nursing CONSTITUTIONAL: Well developed, well nourished, ill appearing. HEAD: Normocephalic, atraumatic. There is no facial, maxillary tenderness or swelling. EYES: conjunctivae normal, extraocular muscles intact. ENMT: External ears normal. Right-sided nasal packing in place. No active epistaxis is noted. No epistaxis in the posterior oropharynx. Oral mucous mem branes dry.. Oropharynx otherwise normal. NECK: Full active range of motion. RESPIRATORY: Breathing unlabored and symmetric. Lungs clear to auscultation bilaterally. No wheeze, rales, or rhonchi. CARDIOVASCULAR: Regular rate and rhythm. No murmurs, rubs, or gallops. DP and radial pulses 2+ bilaterally ABDOMEN: Normal bowel sounds. Soft, nontender, no peritonitis. No masses. MUSCULOSKELETAL: Moves all extremities at all joints without pain or difficulty. No lower extremity edema. No skin color changes in lower extremities, no tenderness on deep venous system SKIN: [place], warm, dry. No rash or erythema NEUROLOGIC: Alert and oriented x 3. No acute motor or sensory deficits. Cranial nerves grossly intact. PSYCHIATRIC: Appropriate. Normal affect. Procedures Free Text Procedures Anterior Nasal Packing Removal on right Indication: Prior nasal packing placement Verbal consent obtained. Risks and benefits were explained with the usual customary discussion. The pilot boat operator cuff was deflated removal all air from the nasal packing device. The nasal packing was subsequently removed. The patient tolerated this well. No further epistaxis noted. No complications. Course Consultations Consultation #1: Spoke with Dr. Davis regarding the case and workup in the ED, and he is agreeable with admitting the patient for further workup and management. Administered Medications Diclofenac Sodium (Diclofenac Sod 1% Gel 100 Gm Tube) 2 gm EXT BID PRACHI; Protocol Stop: 04/06/22 20:59 Last Admin: 03/07/22 20:21 Dose: 2 gm Documented By: Sodium Chloride (Nss 1000ml) 1,000 mls @ 100 mls/hr IV .Q10H PRACHI Stop: 03/08/22 13:44 Last Admin: 03/07/22 17:10 Dose: 100 mls/hr Documented By: OSMIN Latanoprost (Latanoprost 0.005% Op Soln 2.5 Ml Btl) 1 drops OP PM PRACHI Stop: 04/06/22 20:59 Last Admin: 03/07/22 20:22 Dose: 1 drops Documented By: Simvastatin (Simvastatin 40 Mg Tab) 40 mg PO HS PRACHI Stop: 04/06/22 20:59 Last Admin: 03/07/22 20:20 Dose: 40 mg Documented By: Trazodone HCl (Trazodone Hcl 100 Mg Tab) 100 mg PO HS PRACHI Stop: 04/06/22 20:59 Last Admin: 03/07/22 20:20 Dose: 100 mg Documented By: Discontinued Medications Sodium Chloride (Nss) 500 mls @ 999 mls/hr IV .Q31M ONE Stop: 03/07/22 09:49 Last Infusion: 03/07/22 11:49 Dose: 0 mls/hr Documented By: Admin: 03/07/22 10:13 Dose: 999 mls/hr Documented By: [facility] Ioversol (Optiray 320 125ml) 120 ml IV ONCE ONE Stop: 03/07/22 11:43 Last Admin: 03/07/22 11:42 Dose: 120 ml Documented By: ANIKET Potassium Chloride (Potassium Chloride Crtab 20 Meq Tabcr) 20 meq PO NOW ONE Stop: 03/07/22 15:43 Last Admin: 03/07/22 17:10 Dose: 20 meq Documented By: DTT Medical Decision Making Differential Diagnosis Sinus infection, abscess, viral infection, anemia, heart failure, PE, ACS, hypoxemia, pneumonia, sleep apnea, among other pathology Medical Records Attestation: I reviewed the patient's medical records. Laboratory Data Result diagrams: 03/07/22 10:00 03/07/22 10:00 Lab Results 03/07/22 03/07/22 03/07/22 Range/Units 09:40 09:40 10:00 WBC 10.06 (4.8-10.8) K/ul RBC 4.71 (3.93-5.22) M/uL Hgb 14.9 (12.0-16.0) g/dl Hct 44.1 (34.1-44.9) % MCV 93.6 (80.0-100.0) fL MCH 31.6 (25.0-34.0) pg MCHC 33.8 (32.0-36.0) g/dL RDW Std Deviation 47.7 H (36.4-46.3) fL RDW Coeff of Sarah 13.8 (11.5-14.5) % Plt Count 218 (130-400) K/uL MPV 10.5 (9.4-12.3) fL Immature Gran % (Auto) 0.2 % Neut % (Auto) 70.7 % Lymph % (Auto) 17.4 % Schley % (Auto) 8.9 % Eos % (Auto) 2.0 % Baso % (Auto) 0.8 % Neut # (Auto) 7.11 H (1.4-6.5) K/uL Lymph # (Auto) 1.75 (1.2-3.4) K/uL Schley # (Auto) 0.90 H (0.24-0.82) K/uL Eos # (Auto) 0.20 (0-0.50) K/uL Baso # (Auto) 0.08 (0-0.2) K/uL Immature Gran # (Auto) 0.02 (0.00-0.02) K/uL D-Dimer (0-500) ug/L FEU VBG pH (7.36-7.41) VBG pCO2 (38-50) mmHg VBG pO2 mmHg VBG HCO3 mmol/L VBG O2 Saturation % VBG Base Excess mEq/L Sodium (136-145) mmol/L Potassium (3.5-5.1) mmol/L Chloride (98-107) mmol/L Carbon Dioxide (21-32) mmol/L Anion Gap (3-11) BUN (6-23) mg/dl Creatinine (0.6-1.2) mg/dl Est Cr Clr Drug Dosing ml/min Est GFR ( Amer) ml/min Est GFR (Non-Af Amer) ml/min BUN/Creatinine Ratio (10-20) Glucose (70-99(Fasting)) mg/dl Calcium (8.5-10.1) mg/dl Total Bilirubin (0.2-1.0) mg/dl AST (13-39) U/L ALT (7-52) U/L Alkaline Phosphatase (34-104) U/L Troponin I High Sens (0-14) pg/ml B-Natriuretic Peptide (0-100) pg/ml Total Protein (6.0-8.3) gm/dl Albumin (3.4-5.0) gm/dl Globulin (2.5-4.0) gm/dl Albumin/Globulin Ratio (0.9-2) SARS-CoV-2 (PCR) Cancelled SARS-CoV-2, RNA, NAAT NEGATIVE (NEGATIVE) 03/07/22 03/07/22 03/07/22 Range/Units 10:00 10:00 10:13 WBC (4.8-10.8) K/ul RBC (3.93-5.22) M/uL Hgb (12.0-16.0) g/dl Hct (34.1-44.9) % MCV (80.0-100.0) fL MCH (25.0-34.0) pg MCHC (32.0-36.0) g/dL RDW Std Deviation (36.4-46.3) fL RDW Coeff of Sarah (11.5-14.5) % Plt Count (130-400) K/uL MPV (9.4-12.3) fL Immature Gran % (Auto) % Neut % (Auto) % Lymph % (Auto) % Schley % (Auto) % Eos % (Auto) % Baso % (Auto) % Neut # (Auto) (1.4-6.5) K/uL Lymph # (Auto) (1.2-3.4) K/uL Schley # (Auto) (0.24-0.82) K/uL Eos # (Auto) (0-0.50) K/uL Baso # (Auto) (0-0.2) K/uL Immature Gran # (Auto) (0.00-0.02) K/uL D-Dimer 530 H* (0-500) ug/L FEU VBG pH 7.44 H (7.36-7.41) VBG pCO2 46 (38-50) mmHg VBG pO2 48 mmHg VBG HCO3 31 mmol/L VBG O2 Saturation 81.0 % VBG Base Excess 6.1 mEq/L Sodium 140 (136-145) mmol/L Potassium 3.4 L (3.5-5.1) mmol/L Chloride 99 (98-107) mmol/L Carbon Dioxide 33 H (21-32) mmol/L Anion Gap 8 (3-11) BUN 30 H (6-23) mg/dl Creatinine 1.32 H (0.6-1.2) mg/dl Est Cr Clr Drug Dosing 32.7 ml/min Est GFR ( Amer) 44.4 ml/min Est GFR (Non-Af Amer) 38.3 ml/min BUN/Creatinine Ratio 22.7 H (10-20) Glucose 119 H (70-99(Fasting)) mg/dl Calcium 10.5 H (8.5-10.1) mg/dl Total Bilirubin 0.8 (0.2-1.0) mg/dl AST 19 (13-39) U/L ALT 17 (7-52) U/L Alkaline Phosphatase 71 (34-104) U/L Troponin I High Sens 9.7 (0-14) pg/ml B-Natriuretic Peptide (0-100) pg/ml Total Protein 8.0 (6.0-8.3) gm/dl Albumin 4.4 (3.4-5.0) gm/dl Globulin 3.6 (2.5-4.0) gm/dl Albumin/Globulin Ratio 1.2 (0.9-2) SARS-CoV-2 (PCR) SARS-CoV-2, RNA, NAAT (NEGATIVE) 03/07/22 03/07/22 Range/Units 10:15 12:28 WBC (4.8-10.8) K/ul RBC (3.93-5.22) M/uL Hgb (12.0-16.0) g/dl Hct (34.1-44.9) % MCV (80.0-100.0) fL MCH (25.0-34.0) pg MCHC (32.0-36.0) g/dL RDW Std Deviation (36.4-46.3) fL RDW Coeff of Sarah (11.5-14.5) % Plt Count (130-400) K/uL MPV (9.4-12.3) fL Immature Gran % (Auto) % Neut % (Auto) % Lymph % (Auto) % Schley % (Auto) % Eos % (Auto) % Baso % (Auto) % Neut # (Auto) (1.4-6.5) K/uL Lymph # (Auto) (1.2-3.4) K/uL Schley # (Auto) (0.24-0.82) K/uL Eos # (Auto) (0-0.50) K/uL Baso # (Auto) (0-0.2) K/uL Immature Gran # (Auto) (0.00-0.02) K/uL D-Dimer (0-500) ug/L FEU VBG pH (7.36-7.41) VBG pCO2 (38-50) mmHg VBG pO2 mmHg VBG HCO3 mmol/L VBG O2 Saturation % VBG Base Excess mEq/L Sodium (136-145) mmol/L Potassium (3.5-5.1) mmol/L Chloride (98-107) mmol/L Carbon Dioxide (21-32) mmol/L Anion Gap (3-11) BUN (6-23) mg/dl Creatinine (0.6-1.2) mg/dl Est Cr Clr Drug Dosing ml/min Est GFR ( Amer) ml/min Est GFR (Non-Af Amer) ml/min BUN/Creatinine Ratio (10-20) Glucose (70-99(Fasting)) mg/dl Calcium (8.5-10.1) mg/dl Total Bilirubin (0.2-1.0) mg/dl AST (13-39) U/L ALT (7-52) U/L Alkaline Phosphatase (34-104) U/L Troponin I High Sens 9.6 (0-14) pg/ml B-Natriuretic Peptide 17 (0-100) pg/ml Total Protein (6.0-8.3) gm/dl Albumin (3.4-5.0) gm/dl Globulin (2.5-4.0) gm/dl Albumin/Globulin Ratio (0.9-2) SARS-CoV-2 (PCR) SARS-CoV-2, RNA, NAAT (NEGATIVE) Imaging Data Radiologist's Impression: Chest CTA 03/07/22 10:57 CT angio chest PE protocol CLINICAL HISTORY: Hypoxemia, positive dimer TECHNIQUE: Multidetector row helical CT of the chest was performed with angiographic protocol. Coronal and sagittal reformations were obtained. Coronal and sagittal MIPS were obtained from the axial data set and were submitted for review. Automated dose lowering techniques and/or adjustment according to patient size were utilized for this exam. CT DOSE: 271.19 mGy.cm Comparison: Comparison is made to CT chest 06/19/2017 FINDINGS: Lungs and pleura: Normal. Heart and pericardium: Heart size is normal. No pericardial effusion. Vessels: No evidence of pulmonary embolism. Mediastinum and caterina: Unremarkable. Chest wall and lower neck: Unremarkable. Abdomen: Patient is status post cholecystectomy. Bones: Degenerative changes in the thoracic spine. IMPRESSION: No evidence of pulmonary embolism. ACT 112: Negative or not required by law. Electronically signed by: Rodger Saleem M.D. 03/07/2022 11:54 AM ECG Data Additional Comments: Sinus rhythm with a rate of 89. Intervals within normal limits. Left axis deviation. T wave inversions in lead III and aVF, V2, V3. Question S1Q3T3 pattern. Compared to ECG obtained from [facility] records from October 26, 2021, T wave inversions in lead aVF, V2 and V3 are new MDM Narrative 81-year-old female returns for right anterior nasal packing removal secondary to being placed 4 days ago. She stopped taking Keflex 2 days ago because she was not feeling very well. She endorses an intermittent headache, dental pain, and facial pain, although that is not present right now. Has not been eating or drinking very much. On exam, she does appear with dry oral mucous membranes, slightly ill-appearing. Her oxygen saturation is 89 to 90% on room air with a good pleth. This is lower than in the past. She was given 2 L O2 via nasal cannula, and oxygen saturation improved to 93%. She is not tachycardic although does take metoprolol. She is normotensive. She was placed on the threat monitoring analyst demonstrating a sinus rhythm. Nasal packing was removed without difficulty, no further bleeding was noted. Will further evaluate for hypoxemia with labs, chest x-ray, EKG. Labs today demonstrate no leukocytosis or anemia. D-dimer slightly elevated at 530. VBG 7.44 Slight hypokalemia 3.4 which she has been in the past. Creatinine 1.32, slightly elevated compared to baseline. She was given IV fluids. Calcium slightly elevated at 10.5. Troponin is negative. BNP is normal. ECG demonstrates T wave inversions and lead V2 and V3 which appear to be new as described above. When further questioned, patient does describe intermittent sharp chest pains under her breast usually when coughing, and this was document ed from a cardiology note from 11/13/2021. Her last echocardiogram demonstrated small loculated anterior and right lateral pericardial effusion with moderate organization largely unchanged from 2020. Chest x-ray is negative for opacity or fluid overload. CT of the chest was obtained due to hypoxemia and elevated D-dimer, and this was found to be negative for PE. Delta troponin is largely unchanged. I ambulated the patient around the emergency department without any oxygen and she became tachycardic although did not drop her oxygen saturation, this remained at 91%. Hypoxemia is not entirely clear at this time, could be related to the ECG changes. Her O2 saturation is persistently lower than it normally is however so patient will be admitted to the hospital for further evaluation. Impression & Plan Hypoxemia, Acute electrocardiogram changes, Encounter for abscess packing removal, Acute hypokalemia Discharge Plan Visit Data Chief Complaint: Suture/Staple/Packing Removal Stated Complaint: REMOVAL OF NOSE PACKING ED Provider: Heladio Linn ED Midlevel Provider: Scout Woody Discharge Problem: Hypoxemia, Acute electrocardiogram changes, Encounter for abscess packing removal, Acute hypokalemia Patient Disposition: Admitted As Inpatient Discharge Instructions Interventions: ED Discharge Assessment Last Done: 03/07/22 15:31
--- NOTE | 2022-03-07 09:42 | XRay Report ---
XR chest 1V portable CLINICAL HISTORY: hypoxemia. COMPARISON STUDY: 01/12/2018 TECHNIQUE: 1 view of the chest FINDINGS: Single frontal view of the chest demonstrates the heart to again be enlarged. There is a decreased in spiratory effort with elevation of the hemidiaphragms and crowding of the bronchovascular markings at the lung bases and centrally. The lungs are clear of alveolar opacities. There is no evidence for pl eural effusion. There is no evidence for vascular congestion. There is no acute osseous pathology. IMPRESSION: 1. . There is a decreased inspiratory effort with otherwise no acute chest disease. ACT 112: Negative or not required by law. Electronically signed by: Darrius Colindres M.D. 03/07/2022 9:40 AM
[2022-03-07 10:17] LABS: Basophils # (auto) 0.08 K/uL (0-0.2); Basophils % (auto) 0.8 %; Hematocrit (blood only) 44.1 % (34.1-44.9); Hemoglobin 14.9 g/dl (12.0-16.0); Immature Granulocytes # (auto) 0.02 K/uL (0.00-0.02); Immature Granulocytes % (auto) 0.2 %; Lymphocytes # (auto) 1.75 K/uL (1.2-3.4); Lymphocytes % (auto) 17.4 %; Mean Corpuscular Hemoglobin 31.6 pg (25.0-34.0); Mean Corpuscular Hgb Conc 33.8 g/dL (32.0-36.0); Mean Corpuscular Volume 93.6 fL (80.0-100.0); Mean Platelet Volume 10.5 fL (9.4-12.3); Monocytes % (auto) 8.9 %; Neutrophils # (auto) 7.11 K/uL (1.4-6.5); Neutrophils % (auto) 70.7 %; Platelet Count 218 K/uL (130-400); RDW Coefficient of Variation 13.8 % (11.5-14.5); RDW Standard Deviation 47.7 fL (36.4-46.3); Red Blood Count 4.71 M/uL (3.93-5.22); White Blood Count 10.06 K/ul (4.8-10.8)
[2022-03-07 10:24] LABS: Base Excess VBG 6.1 mEq/L; HCO3 VBG 31 mmol/L; PCO2 VBG 46 mmHg (38-50); PO2 VBG 48 mmHg; pH VBG 7.44 (7.36-7.41)
[2022-03-07 10:43] LABS: D Dimer 530 ug/L FEU (0-500)
[2022-03-07 10:45] LABS: Est GFR (African American) 44.4 ml/min; Est GFR (Non-African American) 38.3 ml/min; Potassium 3.4 mmol/L (3.5-5.1)
[2022-03-07 10:46] LABS: Albumin Globulin Ratio 1.2 (0.9-2); Albumin Level 4.4 gm/dl (3.4-5.0); BUN Creatinine Ratio 22.7 (10-20); Bilirubin,Total 0.8 mg/dl (0.2-1.0); Calcium 10.5 mg/dl (8.5-10.1); Creatinine Clr Calc Pharmacy 32.7 ml/min; Globulin 3.6 gm/dl (2.5-4.0)
[2022-03-07 10:49] LABS: Troponin I High Sensitivity 9.7 pg/ml (0-14)
--- NOTE | 2022-03-07 11:41 | Electrocardiogram Report ---
Test Reason : Blood Pressure : / mmHG Vent. Rate : 089 BPM Atrial Rate : 089 BPM P-R Int : 170 ms QRS Dur : 084 ms QT Int : 386 ms P-R-T Axes : 036 -46 009 degrees QTc Int : 469 ms Poor data quality, interpretation may be adversely affected Normal sinus rhythm Left axis deviation Poor R wave progression, consider anterior OH vs. lead placement vs. LVH Abnormal ECG When compared with ECG of 12-JAN-2018 19:14, Nonspecific T wave abnormality, worse in Anterior leads Confirmed by Perez Elam ([id number]) on 03/07/2022 11:41:22 AM Referred By: REFERRED SELF Confirmed By:Maurice Elam
[2022-03-07] MEDS ORDERED: OPTIRAY 320 125ml IV ONE (11:42)
--- NOTE | 2022-03-07 11:55 | CT Scan Report ---
CT angio chest PE protocol CLINICAL HISTORY: Hypoxemia, positive dimer TECHNIQUE: Multidetector row helical CT of the chest was performed with angiographic protocol. Ascencio l and sagittal reformations were obtained. Coronal and sagittal MIPS were obtained from the axial marely a set and were submitted for review. Automated dose lowering techniques and/or adjustment according to patient size were utilized for this exam. CT DOSE: 271.19 mGy.cm Comparison: Comparison is made to CT chest 06/19/2017 FINDINGS: Lungs and pleura: Normal. Heart and pericardium: Heart size is normal. No pericardial effusion. Vessels: No evidence of pulmonary embolism. Mediastinum and caterina: Unremarkable. Chest wall and lower neck: Unremarkable. Abdomen: Patient is status post cholecystectomy. Bones: Degenerative changes in the thoracic spine. IMPRESSION: No evidence of pulmonary embolism. ACT 112: Negative or not required by law. Electronically signed by: Rodger Saleem M.D. 03/07/2022 11:54 AM
--- NOTE | 2022-03-07 13:44 | History & Physical Report ---
Date of Service March 07, 2022 Assessment & Plan (1) Dehydration: (2) Hypoxemia: (3) Hypokalemia: (4) Hypercalcemia: (5) Stage 3b chronic kidney disease (CKD): (6) Essential hypertension: (7) Chest pain: (8) Abnormal EKG: Plan Dehydration- Her symptoms of not feeling well started after the nasal pack and being on keflex, which she stopped after 4 doses. Poor oral intake at home but taking her chlorthalidone. Noted to be dry on arrival along with mild hypercalcemia and given 1 L NS after which patient had felt much better and now would like to eat something. Will continue IVF. Hold chlorthalidone. Chest pain, abnormal EKG- doubt ACS. patient states chest pain under bilateral breast when coughing, no radiation, no other symptoms, non exertional. EKG abnormal with poor R wave progression compared to prior ?lead reversal. Will repeat EKG. Trop x2 negative. Will trend for completeness and monitor on tele. Follows with Dr Balderas as OP. Hypoxemia- Resolved. on presentation 89% and was put on NC. CT A/P with no PE, no PNA or acute abnormality. Mildly elevated D dimer is WNL when corrected for age. I took off the NC and observed for 10 minutes and her oxygen saturation was 92-94% during my encounter off of oxygen. Monitor. Incentive spirometry. Consider 2 step O2 eval prior to discharge. Hypokalemia- mild, likely from chlorthalidone, repleted, recheck in am Hypercalcemia- mild, likley from chlorthalidone and dehydration. IVF given, diuretic held, recheck in am [id number]- Cr mildly elevated from baseline, likely from dehydration. Continue IVF, hold diuretic and recheck in am. Essential HTN- continue losartan, toprol. Will hold chlorthalidone Hypothyroid- on sythroid H/o Epistaxis- s/p right nasal packing 03/03 which was removed today. Aspirin on hold. NILAM on CPAP Full code DVT ppx- scd. Overnight observation only Dispo- Observation- medsur tele Updated at bedside History of Present Illness Chief Complaint: "Feeling sick' Primary Care Provider: Riki Benjamin MD 81 year old female with h/o HTN, hypothyroidism, epistaxis, NILAM on CPAP, who presented to the ED for right nasal pack removal and not feeling well. Patient was in the ED on 03/03 for epistaxis and was placed on right nasal pack and discharged home on Keflex. Since she took keflex, she felt poorly with nausea and poor oral intake and she stopped her keflex after a day ( 4 doses). She had to take her home zofran for her nausea. Denies any fever, vomiting. She was however taking all her pills. She came to the ED today for nasal pack removal. ED physician noted her to be dry and some hypoxia with oxygen saturation of 89%. Also endorsed intermittent chest pain. She was given 1 L IVF, put on NC, EKG showed some T wave inversion, her D dimer was slightly elevated but CTA negative for PE or acute abnormality. After 1 L IVF, she felt better but she was not felt good enough to be discharged home from the ED and hospitalist service was consulted for further management. During my encounter, she was lying comfortably at bed. She felt better after removing the nasal pack and getting IVF. She denied any chest pain and stated it was only with cough and under bilateral breast, otherwise non exertional and no associated symptoms. Denies any h/o CAD and follows with Dr Phan- next follow up on May. She feels hungry and was asking if she can have some food. Never smoker. at bedside. Allergies Allergy/AdvReac Type Severity Reaction Status Date / Time morphine Allergy Severe anaphalytic Verified 11/27/21 11:06 Quinolones Allergy Mild UNKNOWN Verified 11/27/21 11:06 Sulfa (Sulfonamide Allergy Mild UNKNOWN Verified 11/27/21 11:06 Antibiotics) sulfamethoxazole Allergy Mild UNKNOWN Verified 11/27/21 11:06 trimethoprim Allergy Mild UNKNOWN Verified 11/27/21 11:06 adhesive Allergy Unknown REDNESS Verified 11/27/21 11:06 SKIN IRRITATION WITH SOME TAPES Cipro Allergy Unknown RASH Verified 10/25/17 10:27 ciprofloxacin Allergy Unknown RASH Verified 11/27/21 11:06 moxifloxacin Allergy Unknown rash Verified 11/27/21 11:06 pantoprazole Allergy Unknown rash Verified 11/27/21 11:06 cortisone AdvReac Mild UNKNOWN Verified 11/27/21 11:06 nitrofurantoin AdvReac Mild got very Verified 11/27/21 11:06 nauseated and diarrhea Home Medications Medication Instructions Recorded Confirmed Type aspirin 81 mg tablet,delayed 81 mg PO DAILY 02/20/20 11/27/21 History release (Rahul Low Dose Aspirin) benzonatate 100 mg capsule 100 mg PO BID PRN Cough 02/20/20 11/27/21 History chlorthalidone 25 mg tablet 25 mg PO DAILY 02/20/20 11/27/21 History docusate sodium 50 mg capsule 50 mg PO DAILY 02/20/20 11/27/21 History latanoprost 0.005 % eye drops 1 drp ophthalmic (eye) PM 02/20/20 11/27/21 His tory polyethylene glycol 3350 17 gram 17 g PO BID 02/20/20 11/27/21 History oral powder packet (Miralax) sertraline 100 mg tablet 100 mg PO DAILY 02/20/20 11/27/21 History simvastatin 40 mg tablet 40 mg PO DAILY 02/20/20 11/27/21 History tolterodine 2 mg tablet 1 mg PO BID 02/20/20 11/27/21 History varicella-zoster glycoE [id number] 0.5 ml IM DIRECTED 02/20/20 11/27/21 History adj(PF) 50 mcg/0.5 mL IM susp, kit (Shingrix (PF)) cephalexin 500 mg capsule 500 mg PO TID 7 days #21 caps 03/03/22 Rx Past Med/Surg History Medical History C. difficile colitis Hypertension Hypothyroidism Pes anserinus tendinitis of left lower extremity Right knee DJD Surgical History Total knee replacement status Social History Smoking Status: Never smoker Hx Alcohol Use: No Hx Substance Use: No Preferred Language: Czech Project Architect Required: No Beliefs That Will Affect Care: None marital status: Current Living Situation: Spouse Feels Safe at Home: Yes Assistive Devices: CPAP and Glasses Review of Systems Review of Systems: All systems reviewed & are unremarkable except as noted in Subjective Physical Exam Physical Exam: General: Sitting comfortably in bed, not in distress, on NC HEENT: EOMI, ANGY, MMM Chest: Clear breath sounds bilaterally, no wheezes or crackles CVS: Regular rate and rhythm, normal heart sounds, no murmur Abdomen: Soft, non tender, not distended, normal bowel sounds Neuro: Awake, alert, oriented, conversing well, non focal Extremities: No cyanosis, clubbing or edema Results & Data Results & Data ([facility]) Vital Signs (Past 12 Hours) Vital Signs Temp Pulse Pulse Resp BP BP Pulse Ox 03/07/22 12:00 79 18 132/93 91 03/07/22 09:49 91 H 18 109/74 95 03/07/22 09:16 84 18 127/77 87 L 03/07/22 08:29 36.6 C 95 H 18 100/67 92 O2 Del Method O2 Flow Rate 03/07/22 12:00 Room Air 03/07/22 09:49 Nasal Cannula 3 03/07/22 09:16 Room Air 03/07/22 08:29 Laboratory Results Short CBC 03/07/22 Range/Units 10:00 WBC 10.06 (4.8-10.8) K/ul Hgb 14.9 (12.0-16.0) g/dl Hct 44.1 (34.1-44.9) % Plt Count 218 (130-400) K/uL BMP 03/07/22 10:00 Sodium 140 Potassium 3.4 L Chloride 99 Carbon Dioxide 33 H BUN 30 H Creatinine 1.32 H Glucose 119 H Calcium 10.5 H Liver Function 03/07/22 Range/Units 10:00 Total Bilirubin 0.8 (0.2-1.0) mg/dl AST 19 (13-39) U/L ALT 17 (7-52) U/L Alkaline Phosphatase 71 (34-104) U/L Albumin 4.4 (3.4-5.0) gm/dl Diagnostic Findings Chest X-Ray 03/07/22 09:19 XR chest 1V portable CLINICAL HISTORY: hypoxemia. COMPARISON STUDY: 01/12/2018 TECHNIQUE: 1 view of the chest FINDINGS: Single frontal view of the chest demonstrates the heart to again be enlarged. There is a decreased inspiratory effort with elevation of the hemidiaphragms and crowding of the bronchovascular markings at the lung bases and centrally. The lungs are clear of alveolar opacities. There is no evidence for pleural effusio n. There is no evidence for vascular congestion. There is no acute osseous pathology. IMPRESSION: 1. . There is a decreased inspiratory effort with otherwise no acute chest disease. ACT 112: Negative or not required by law. Electronically signed by: Darrius Colindres M.D. 03/07/2022 9:40 AM Chest CTA 03/07/22 10:57 CT angio chest PE protocol CLINICAL HISTORY: Hypoxemia, positive dimer TECHNIQUE: Multidetector row helical CT of the chest was performed with angiographic protocol. Coronal and sagittal reformations were obtained. Coronal and sagittal MIPS were obtained from the axial data set and were submitted for review. Automated dose lowering techniques and/or adjustment according to patient size were utilized for this exam. CT DOSE: 271.19 mGy.cm Comparison: Comparison is made to CT chest 06/19/2017 FINDINGS: Lungs and pleura: Normal. Heart and pericardium: Heart size is normal. No pericardial effusion. Vessels: No evidence of pulmonary embolism. Mediastinum and caterina: Unremarkable. Chest wall and lower neck: Unremarkable. Abdomen: Patient is status post cholecystectomy. Bones: Degenerative changes in the thoracic spine. IMPRESSION: No evidence of pulmonary embolism. ACT 112: Negative or not required by law. Electronically signed by: Rodger Saleem M.D. 03/07/2022 11:54 AM
[2022-03-07] MEDS ORDERED: POTASSIUM CHLORIDE CRTAB 20 MEQ TABCR PO ONE (15:42)
[2022-03-07] MEDS ORDERED: BENZONATATE 100 MG CAPSULE PO PRN (15:42)
[2022-03-07] MEDS ORDERED: ONDANSETRON INJ 2 MG/ML 2 ML VIAL IV PRN (15:42)
[2022-03-07] MEDS ORDERED: ACETAMINOPHEN 325 MG TAB PO PRN (15:42)
[2022-03-07] MEDS: SODIUM CHLORIDE 0.9% 1000ML 1,000 ML IV SCH (17:10)
[2022-03-07] MEDS: DICLOFENAC SOD 1% GEL 100 GM TUBE EXT SCH (20:21)
[2022-03-07] MEDS ORDERED: SIMVASTATIN 40 MG TAB PO SCH (21:00)
[2022-03-07] MEDS ORDERED: LATANOPROST 0.005% OP SOLN 2.5 ML BTL OP SCH (21:00)
[2022-03-07] MEDS ORDERED: traZODone HCL 100 MG TAB PO SCH (21:00)
[2022-03-08] MEDS: SODIUM CHLORIDE 0.9% 1000ML 1,000 ML IV SCH ×2 (02:19→13:05)
[2022-03-08 06:24] LABS: Hematocrit (blood only) 37.3 % (34.1-44.9); Hemoglobin 12.5 g/dl (12.0-16.0); Mean Corpuscular Hemoglobin 31.9 pg (25.0-34.0); Mean Corpuscular Hgb Conc 33.5 g/dL (32.0-36.0); Mean Corpuscular Volume 95.2 fL (80.0-100.0); Mean Platelet Volume 10.6 fL (9.4-12.3); Platelet Count 161 K/uL (130-400); RDW Coefficient of Variation 13.7 % (11.5-14.5); RDW Standard Deviation 47.8 fL (36.4-46.3); Red Blood Count 3.92 M/uL (3.93-5.22); White Blood Count 7.43 K/ul (4.8-10.8)
[2022-03-08] MEDS ORDERED: LEVOTHYROXINE SODIUM 137 MCG TABLET PO SCH (06:30)
[2022-03-08 07:05] LABS: Anion Gap 7 (3-11); Blood Urea Nitrogen 29 mg/dl (6-23); Calcium 8.7 mg/dl (8.5-10.1); Carbon Dioxide 29 mmol/L (21-32); Chloride 105 mmol/L (98-107); Creatinine Clr Calc Pharmacy 42.9 ml/min; Est GFR (African American) 62.1 ml/min; Est GFR (Non-African American) 53.5 ml/min; Glucose 117 mg/dl (70-99(Fasting)); Sodium 141 mmol/L (136-145)
[2022-03-08] MEDS: DICLOFENAC SOD 1% GEL 100 GM TUBE EXT SCH (08:32)
[2022-03-08] MEDS ORDERED: PANTOprazole 40 MG TAB PO SCH (09:00)
[2022-03-08] MEDS ORDERED: CYANOCOBALAMIN (B-12) 500 MCG TABLET PO SCH (09:00)
[2022-03-08] MEDS ORDERED: LOSARTAN POTASSIUM 50 MG TAB PO SCH (09:00)
[2022-03-08] MEDS ORDERED: SERTRALINE HCL 100 MG TABLET PO SCH (09:00)
[2022-03-08] MEDS ORDERED: METOPROLOL SUCC 25MG EXT REL TAB PO SCH (09:00)
--- NOTE | 2022-03-08 12:32 | Electrocardiogram Report ---
Test Reason : Blood Pressure : / mmHG Vent. Rate : 061 BPM Atrial Rate : 061 BPM P-R Int : 162 ms QRS Dur : 088 ms QT Int : 456 ms P-R-T Axes : 008 -37 022 degrees QTc Int : 459 ms Normal sinus rhythm Left axis deviation Poor R wave progression, consider anterior FL vs. lead placement vs. LVH Abnormal ECG When compared with ECG of 07-MAR-2022 09:43, Nonspecific T wave abnormality, improved in Anterior leads Confirmed by Perez Elam ([id number]) on 03/08/2022 12:31:47 PM Referred By: REFERRED SELF Confirmed By:Maurice Elam
--- NOTE | 2022-03-08 12:51 | Discharge Summary ---
Date of Service March 08, 2022 Admission HPI Per Admitting Provider 81 year old female with h/o HTN, hypothyroidism, epistaxis, NILAM on CPAP, who presented to the ED for right nasal pack removal and not feeling well. Patient was in the ED on 03/03 for epistaxis and was placed on right nasal pack and discharged home on Keflex. Since she took keflex, she felt poorly with nausea and poor oral intake and she stopped her keflex after a day ( 4 doses). She had to take her home zofran for her nausea. Denies any fever, vomiting. She was however taking all her pills. She came to the ED today for nasal pack removal. ED physician noted her to be dry and some hypoxia with oxygen saturation of 89%. Also endorsed intermittent chest pain. She was given 1 L IVF, put on NC, EKG showed some T wave inversion, her D dimer was slightly elevated but CTA negative for PE or acute abnormality. After 1 L IVF, she felt better but she was not felt good enough to be discharged home from the ED and hospitalist service was consulted for further management. During my encounter, she was lying comfortably at bed. She felt better after removing the nasal pack and getting IVF. She denied any chest pain and stated it was only with cough and under bilateral breast, otherwise non exertional and no associated symptoms. Denies any h/o CAD and follows with Dr Phan- next follow up on May. She feels hungry and was asking if she can have some food. Never smoker. at bedside. Admission Exam Per Admitting Provider General: Sitting comfortably in bed, not in distress, on NC HEENT: EOMI, ANGY, MMM Chest: Clear breath sounds bilaterally, no wheezes or crackles CVS: Regular rate and rhythm, normal heart sounds, no murmur Abdomen: Soft, non tender, not distended, normal bowel sounds Neuro: Awake, alert, oriented, conversing well, non focal Extremities: No cyanosis, clubbing or edema Principal Diagnosis Dehydration, electrolyte abnormalities Hypoxemia Discharge Exam GENERAL: Alert and oriented x3. NAD, on 2L. HEENT: No pallor, no icterus. Pupils equal, round and reactive to light. Oral mucosa moist. NECK: No JVD, no neck masses. HEART: S1 and S2 heard. Regular rate and rhythm. No murmur, no gallop. RESPIRATORY SYSTEM: Normal AP diameter. No accessory muscle use. No wheezing, no crackles. ABDOMEN: Soft, bowel sounds present, nontender, no distention. CENTRAL NERVOUS SYSTEM: No facial droop. Speech is clear. Obeys simple commands. Moves extremities. EXTREMITIES: No edema, no erythema seen. Discharge Data Allergies Allergy/AdvReac Type Severity Reaction Status Date / Time morphine Allergy Severe anaphalytic Verified 11/27/21 11:06 Quinolones Allergy Mild UNKNOWN Verified 11/27/21 11:06 Sulfa (Sulfonamide Allergy Mild UNKNOWN Verified 11/27/21 11:06 Antibiotics) sulfamethoxazole Allergy Mild UNKNOWN Verified 11/27/21 11:06 trimethoprim Allergy Mild UNKNOWN Verified 11/27/21 11:06 adhesive Allergy Unknown REDNESS Verified 11/27/21 11:06 SKIN IRRITATION WITH SOME TAPES Cipro Allergy Unknown RASH Verified 10/25/17 10:27 ciprofloxacin Allergy Unknown RASH Verified 11/27/21 11:06 moxifloxacin Allergy Unknown rash Verified 11/27/21 11:06 pantoprazole Allergy Unknown rash Verified 11/27/21 11:06 cortisone AdvReac Mild UNKNOWN Verified 11/27/21 11:06 nitrofurantoin AdvReac Mild got very Verified 11/27/21 11:06 nauseated and diarrhea Consultations 03/07/22 12:50 ED Decision to Admit Stat Ordered Studies 03/07/22 10:57 CT angio chest PE protocol Stat Hospital Course (1) Dehydration: (2) Hypoxemia: (3) Hypokalemia: (4) Hypercalcemia: (5) Stage 3b chronic kidney disease (CKD): (6) Essential hypertension: (7) Chest pain: (8) Abnormal EKG: Plan 81-year-old lady who was on nasal packing for epistaxis and on prophylactic Keflex presented to our ED 03/07 for not feeling well and was found to have dehydration. Nasal packing was taken out. Patient stopped Keflex after 4 doses because she was not feeling well. In the morning patient feels well, renal functions are back to baseline. Pt got ivf. Patient reports eating and drinking well. Patient denies any chest pain or headache or dizziness or further epis taxis or other review of symptoms. Trop trends are negative. Patient underwent two-step test and does not require oxygen. Electrolytes have been replaced and normal. Patient to resume her home medication as prior, no medication changes has been made while inpatient. Patient to get her blood work CBC and CMP in a week time and have the results forwarded to her primary care physician. Patient to visit her primary care physician within a week time as a part of transition of care. Patient is hemodynamically stable and doing fine clinically/lab kearns, patient is being discharged to home. Full code Patient being discharged to home with following instruction at the point of discharge: Follow-up with your primary care physician within 1 week time. Get your blood work CBC and CMP done in a week time and have the results forwarded to your primary care physician. Continue your home meds as before. Total Time Total Time Spent Total Time Spent (In Minutes): 40 Discharge Plan Discharge Items Patient Disposition: Home - Self-Care Reason For Visit: NASAL PACK REMOVAL,FEELING SICK Discharge Diagnosis: Dehydration, electrolyte abnormalities Hypoxemia Activity: Resume your previous activity Non-emergency contact: Primary Care Provider Call non-emergency contact if: you have any medication questions, your symptoms worsen and your temperature is above 101 Follow-up/Referrals: Riki Benjamin MD [Primary Care Provider] - (Date & Time 03/12/2022 10:00 AM Provider Riki Benjamin MD Department Family [facility] ) Diet: Regular Addtl Attending Provider Instructions: Follow-up with your primary care physician within 1 week time. Get your blood work CBC and CMP done in a week time and have the results forwarded to your primary care physician. Continue your home meds as before. Pending Studies at Discharge: No Stand-Alone Forms: My [employer], Smoking Cessation Medications and DC Order Prescriptions: New losartan 50 mg Tablet 50 mg PO QAM Qty: 30 0RF metoprolol succinate 25 mg Tablet Extended Release 24 Hr 12.5 mg PO QAM Qty: 20 0RF acetaminophen 325 mg Tablet 650 mg PO Q8H PRN (Reason: fever or pain) Qty: 60 0RF diclofenac sodium [Voltaren Arthritis Pain] 1 % Gel 2 g EXT BID Qty: 100 0RF trazodone 100 mg Tablet 100 mg PO HS Qty: 30 0RF levothyroxine 137 mcg Tablet 137 mcg PO DAILYBB Qty: 30 0RF cyanocobalamin (vitamin B-12) 500 mcg Tablet 1,000 mcg PO QAM 14 Days Qty: 28 0RF omeprazole 20 mg capsule,delayed release(DR/EC) 20 mg PO DAILY Qty: 30 0RF ondansetron 4 mg tablet,disintegrating 4 mg PO Q8H PRN (Reason: nausea and vomiting) Qty: 30 0RF Continued polyethylene glycol 3350 [Miralax] 17 gram Powder In Packet 17 g PO BID docusate sodium 50 mg Capsule 50 mg PO DAILY aspirin [Rahul Low Dose Aspirin] 81 mg Tablet,Delayed Release (Dr/Ec) 81 mg PO DAILY benzonatate 100 mg Capsule 100 mg PO BID PRN (Reason: Cough) chlorthalidone 25 mg tablet 25 mg PO DAILY latanoprost 0.005 % Drops 1 drp OPHTHALMIC (EYE) PM sertraline 100 mg Tablet 100 mg PO DAILY simvastatin 40 mg Tablet 40 mg PO DAILY Discontinued Shingrix (PF) 50 mcg/0.5 mL suspension for reconstitution 0.5 ml IM DIRECTED tolterodine 2 mg tablet 1 mg PO BID cephalexin 500 mg capsule 500 mg PO TID 7 Days Qty: 21 0RF Discharge Orders: Discharge Order (Routine); Ordered 03/08/22 Ordered By: Eva Emanuel Admission Data Admit Date/Time: 03/07/22 13:51 Attending Provider: Eva Emanuel Admit Provider: Leland Davis Primary Care Provider: Riki Benjamin Other Providers: Leland Davis
== END 2022-03-08 13:50 | disposition home or self-care (01) ==
LOC: ED 08:25 → 2N 08:25 → SUATTDRO 13:51 → 2N 15:31